=== PATIENT | male | born 1960 | race Hispanic/Latino ===

== ENCOUNTER 2016-04-30 09:30 | Observation (INO) | payer OTHER ==
[2016-04-30] VITALS (9 sets, daily range): BP systolic 137–160; BP diastolic 71–90; PULSE 59–99; RESP 12–20; O2SAT 93–97
[~2016-04-30] VITALS: Ht 172.7 cm; Wt 94.7 kg
[~2016-04-30 09:30] MED LIST: ASPI81TA3 PO; ATOR80TA PO; CLOP75TA28 PO; HYDR12.55 PO; LISI40TA PO; METO-272 PO; NITR0.4T SL; PANT20T PO
--- NOTE | 2016-04-30 09:50 | ED.REPORT ---
HPI-Chest Pain 40 and Over Date of Service Apr 30, 2016 ED Provider: Singh Chen DO A 55 year old male with a history of PA, HTN,CVA, CAD, renal cancer, and hypercholesterolemia, presents to the ED via EMS complaining of chest pain onset last night that has since worsened. Pain is currently rated 8/10. Pain was so bad that he decided not got work and called EMS. He took morphine and nitroglycerine with no relief. At last ED visit , providers did not think that he had PA but he was diagnosed with swollen heart. Nursing Notes Stated Complaint: CHEST PAIN Chief Complaint: Chest Pain Nursing Notes Reviewed: Yes Allergies: Coded Allergies: No Known Allergies (Verified , 02/07/16) Scheduled Atorvastatin (Lipitor) 80 Mg Tablet 80 MG PO DAILY Clopidogrel (Clopidogrel) 75 Mg Tablet 75 MG PO DAILY Hydrochlorothiazide (Hydrochlorothiazide) 12.5 Mg Tablet 25 MG PO DAILY Lisinopril (Lisinopril) 40 Mg Tablet 40 MG PO DAILY Metoprolol Succinate ER (Metoprolol Succinate ER) 100 Mg Tab.er.24h 100 MG PO DAILY Scheduled PRN Nitroglycerin SL (Nitrostat) 0.4 Mg Tab.subl 0.4 MG SL Q5MIN PRN PRN For Chest Pain General Time Seen by MD: 09:48 Chief Complaint Chest pain Hx Obtained From: Patient, EMS Arrived By: Ambulance Sudden in Onset?: Yes Onset Occurred: Yesterday (Last night) Symptom Duration: Since onset Severity: Current: Pain level 8 out of 10 Recent Healthcare: Recent doctor visit Similar Sx Previous: No Past Medical History Past Medical History Notes: PCP: Dr. Hdz Past Medical History 1. Coronary artery disease 2. Hypertension. 3. Hypercholesterolemia. 4. Pt reports brain aneurysm. 5. Renal cancer with partial nephrectomy 6. 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 Physical Exam Initial Vital Signs Vital Signs (First) Date Time Temp Pulse Resp B/P Pulse Ox O2 Delivery O2 Flow Rate FiO2 04/30/16 09:44 36.6 78 15 151/89 95 Nasal Cannula 2 Initial VS: Reviewed General/Constitutional: Awake, Alert patient has chest wall tenderness. patient is hypertensive. Abdomen: Atraumatic, No guarding, No rebound Neck: Atraumatic, Full range of motion Back: Atraumatic, Full range of motion Lower Extremity / Pelvis / MS: Atraumatic, Full range of motion Skin: Atraumatic, Warm, Dry Neurologic: Oriented X3, Speech NL Head / Eyes: Atraumatic, Normocephalic, PERRL, EOMI ENT: Atraumatic, Mucous membranes moist Upper Extremity / MS: Atraumatic, Full range of motion Wrist / Hand: Atraumatic, Full range of motion Interpretation & Diagnostics Lab Results Interpretation Result Diagram: 04/30/16 0938 04/30/16 0938 Test 04/30/16 09:38 04/30/16 10:33 04/30/16 12:15 White Blood Count 6.0th/mm3 (3.8-10.1) Red Blood Count 5.64mil/mm3 (4.40-5.80) Hemoglobin 17.5g/dL (13.8-17.2) Hematocrit 49.4% (41.0-50.0) Mean Corpuscular Volume 87.6fL (81-100) Mean Corpuscular Hemoglobin 31.0pg (27.0-35.0) Mean Corpuscular Hemoglobin Concent 35.4% (32.0-37.0) Red Cell Distribution Width 13.6% (12.3-15.4) Platelet Count 228bil/L (150-400) Neutrophils (%) (Auto) 66.7% (40-74) Lymphocytes (%) (Auto) 26.7% (14-46) Monocytes (%) (Auto) 5.3% (4-12) Eosinophils (%) (Auto) 0.8% (0-5) Basophils (%) (Auto) 0.3% (0-3) Sodium Level 142mEq/L (134-144) Potassium Level 4.2mEq/L (3.5-5.2) Chloride Level 106mEq/L (97-108) Carbon Dioxide Level 21mmol/L (18-29) Blood Urea Nitrogen 19mg/dL (6-24) Creatinine 0.82mg/dL (0.76-1.27) Estimat Glomerular Filtration Rate 103mL/min (>59) Glucose Level 76mg/dL (60-99) Calcium Level 8.7mg/dL (8.5-10.1) Magnesium Level 2.3mg/dL (1.6-2.6) Total Bilirubin 0.7mg/dL (0.0-1.2) Aspartate Amino Transf (AST/SGOT) 20U/L (0-50) Alanine Aminotransferase (ALT/SGPT) 20U/L (0-44) Alkaline Phosphatase 69U/L (25-150) Pro-B-Type Natriuretic Peptide 107.2pg/mL (0-210) Total Protein 6.3g/dL (6.4-8.4) Albumin 4.3g/dL (3.4-5.0) D-Dimer < 0.5mg/L (<0.50) Troponin T 0.010ug/L (0.0-0.011) ECG Interpretation ECG Interpretation: Rate is 76. Sinus rhythm. Probable left ventricular hypertrophy. Abnormal T, consider ischemia, lateral leads. ST elevation, consider anterior inury. Time: 09:54 Interpreted by: ED physician ECG Interpretation: Rate is 63. Sinus rhythm. Probable left ventricular hypertrophy. Abnormal T, consider ischemia, lateral leads. Anterior ST elevation, probably due to LVH. Time: 12:08 Interpreted by: ED physician X-Ray Chest Interpretation Chest Xray Interpretation: Caution: Report not yet finalized and possibly incomplete! IMPRESSION: 1. No acute cardiopulmonary disease. Dictated by: Yayo Robertson [facility] Interpreted: Stephanie Smith MD on 04/30/2016 at 12:18 Transcribed by: SHIRIN on 04/30/2016 at 15:26 View: Portable, 1 view Interpretation / Wet Read by: Interpret - Radiologist CT Chest Interpretation Chest/Ab CT IMPRESSION: 1. No evidence of aortic dissection or aneurysm. 2. Atherosclerosis including the coronary vasculature. 3. Multiple, small, bilateral lung nodules stable compared to 09/01/2008 likely represent sequela prior granulomatous disease. 4. Small umbilical ventral hernia. Dictated by: Stephanie Smith MD, PhD on 04/30/2016 at 12:33 Approved by: Stephanie Smith MD, PhD on 04/30/2016 at 12:51 Interpretation / Wet Read by: Interpret - Radiologist Re-Eval/Medical Decision Med Decision/Clinical Course Patient has persistent chest pain despite aggressive treatment in the ER, no evidence of acute PA however after discussion with cardiology patient will be heparinized and observed in the hospital. Source of Hx: Old records, EMS Time of Eval: 13:25 Re-Evaluation/Progress Note: Rechecked patient, explained test results, diagnosis, and plan for admission. Patient understands and agrees with the plan. All questions addressed. Consultation : Referral / Consult Name: Laurence Wilson MD Call Returned at: 13:20 Senior Quantity Surveyor: Agrees with eval, Agrees with plan, Accepts admit Note: Discussed patient case with Dr. Wilson who accepts patient admit. Counseled Regarding: Diagnosis, Lab results, Need for admission Discharge & Departure Primary Impression: Chest pain Disposition: ADMITTED TO HOSPITAL Discharge Condition All VS Reviewed: Yes Condition: Improved Referrals: ABRAHAN (PCP) James Attestation Portions of this note were transcribed by Jerrod Cummings. I, Dr. Chen personally performed the history, physical exam and medical decision-making; I reviewed and confirmed the accuracy of the information in the transcribed note. Signed by: James Kwon, 04/30/2016 1420. copies to: Singh Mahajan DO Apr 30, 2016 09:49 Jerrod Cummings Apr 30, 2016 10:00
[2016-04-30 09:54] LABS: BASOPHILS % (AUTO) 0.3 % (0-3); EOSINOPHILS % (AUTO) 0.8 % (0-5); MONOCYTES % (AUTO) 5.3 % (4-12); Mean Corpuscular Volume 87.6 fL (81-100); NEUTROPHILS % (AUTO) 66.7 % (40-74); Platelet Count 228 bil/L (150-400)
[2016-04-30] MEDS ORDERED: Ondansetron 2 mg/mL 2 mL Inj IVPUSH ONE (10:05)
[2016-04-30] MEDS ORDERED: Nitroglycerin 2% 1 Gm Ointment TOPICAL ONE (10:05)
[2016-04-30 11:21] LABS: TROPONIN T 0.01 ug/L (0.0-0.011)
[2016-04-30 11:45] LABS: Magnesium 2.3 mg/dL (1.6-2.6)
--- NOTE | 2016-04-30 12:26 | DRSVH ---
PROCEDURE: X-RAY CHEST ONE VIEW, PORTABLE ([id number]) INDICATIONS: CHEST PAIN. TECHNIQUE: One view of the chest was acquired. COMPARISON: [facility], CR, XR CHEST 1VW (PORTABLE), 02/07/2016, 1:59. FINDINGS: Surgical changes and devices: Lower cervical spine fixation hardware redemonstrated. Lungs and pleura: No pleural effusions or pneumothorax. Lungs are clear. Mediastinum: Mediastinal contours appear normal. Heart size is normal. Bones and chest wall: No suspicious bony lesions. Overlying soft tissues appear unremarkable. IMPRESSION: 1. No acute cardiopulmonary disease. Dictated by: Yayo Robertson RRA Interpreted: Stephanie Smith MD on 04/30/2016 at 12:18 Transcribed by: SHIRIN on 04/30/2016 at 15:26 Approved by: Stephanie Smith MD, PhD on 05/01/2016 at 11:00
--- NOTE | 2016-04-30 12:53 | DRSVH ---
PROCEDURE: CT ANG CHEST/ABD W/WO CONTRAST ([id number]) INDICATIONS: chest pain radiating to back TECHNIQUE: Precontrast 5 mm thick sections acquired from the lung apices to the iliac crests. After the adminis tration of intravenous contrast, 3 mm thick sections again acquired from the lung apices to the iliac crests. 3-dimensional maximum intensity projection (MIP) oblique sagittal and coronal reformats wer e then acquired, and/or 3-dimensional volume rendering reformats. For radiation dose reduction, the following was used: automated exposure control. COMPARISON: [facility], CT, CHEST ANGIO-PE, 09/01/2008, 7:43. FINDINGS: Image quality: Excellent. AORTA: Intramural hematoma: Absent Maximum hematoma thickness: Not applicable. Focal contrast enhancement: Intramural blood pool (< 2 mm neck or imperceptible communication with aortic lumen): Absent. Ulcer-like projection (broad communication with aortic lumen > 3 mm): Absent. Dissection: Absent. Martin classification: Not applicable. Maximum aortic diameter: 3.5 cm. [If Martin A dissection, > 5.0 cm has a poorer prognosis. If [place] B dissection, > 4.0 cm has a poorer prognosis.] Periaortic hematoma: Absent. CHEST: Lungs and pleura: No acute airspace opacities. Small nodules noted in the lungs bilaterally which ar e not significantly changed compared to prior examination obtained 09/01/2008. No pleural effusions or pneumothorax. Central and peripheral airways are patent and normal in caliber. Mediastinum: Heart size is normal. Atherosclerotic ossifications noted in the aorta and the coronar y vasculature. Endovascular stents noted in the coronary vasculature; please correlate with clinical history. No pericardial effusion. No mediastinal or hilar adenopathy by size criteria. Central pulm onary arteries are normal in size. Esophagus is normal in caliber. No hiatal hernias. Bones and chest wall: No axillary adenopathy by size criteria. Thyroid gland is within normal limit s. No suspicious bony lesions. No vertebral body compression fractures. ABDOMEN: Vasculature: Celiac trunk and mesenteric arteries are patent. Renal arteries are also patent. Solid organs: Liver and spleen are normal in size. Gallbladder is within normal limits. Biliary sy stem is non dilated. Pancreas enhances normally. No adrenal nodules. Both kidneys are normal in si ze and enhancement, without hydronephrosis. Right renal cyst is noted. Peripheral calcifications are noted in the left kidney may represent sequela of prior infection or infarction. Peritoneum and bowel: No free fluid or air. Bowel loops are normal in caliber and wall thickness. Nodes and vessels: No retroperitoneal or mesenteric adenopathy by size criteria. Inferior vena cava is normal in morphology. Bones: No suspicious bony lesions. No vertebral body compression fractures. Fixation hardware noted in the lower cervical spine. Miscellaneous: Small fat-containing umbilical ventral hernia is noted.. IMPRESSION: 1. No evidence of aortic dissection or aneurysm. 2. Atherosclerosis including the coronary vasculature. 3. Multiple, small, bilateral lung nodules stable compared to 09/01/2008 likely represent sequela prior granulomatous disease. 4. Small umbilical ventral hernia. Dictated by: Stephanie Smith MD, PhD on 04/30/2016 at 12:33 Approved by: Stephanie Smith MD, PhD on 04/30/2016 at 12:51
[2016-04-30] MEDS ORDERED: Heparin 5,000 Unit/mL Inj IVPUSH ONE (13:25)
[2016-04-30] MEDS ORDERED: Heparin 25K Unit/500mL 0.45 NS 25,000 UNIT in IV Premix 1 EACH IV ONE (13:25)
[2016-04-30] MEDS ORDERED: METO-274 PO (14:09)
[2016-04-30] MEDS ORDERED: Alum-Mag Hydrox-Simeth 30 mL Suspension PO PRN ×3 (14:15→20:30)
[2016-04-30] MEDS ORDERED: Ondansetron 2 mg/mL 2 mL Inj IVPUSH PRN ×2 (14:15→17:00)
[2016-04-30] MEDS ORDERED: AMLO5TAB2 PO (14:48)
[2016-04-30] MEDS ORDERED: ASPI-973 PO (14:48)
[2016-04-30] MEDS ORDERED: HYDR25TA4 PO (14:48)
--- NOTE | 2016-04-30 15:15 | NUR ---
Admit Pt admitted to floor at 1515. Stable, heparin drip at 20ml/hr or 1000units/hr verified with Rafaela smiley RN. Oriented to room. Chest pain remains at 7/10 despite treatments in ER, per REPA[employer]ER [employer]ICKS and pt. Stable on tele per senior radiation protection technician. Denies SOB. VSS MD notified of continued chest pain at 1540, no new orders and MD to see pt. To continue to monitor.
[2016-04-30] MEDS ORDERED: Polyethylene Glycol (PEG) 17 Gm Powder PO PRN (17:00)
--- NOTE | 2016-04-30 17:12 | NUR ---
Neuro 1630 notified that during assessment questions, pt states that prior today he was having word slurring and word searching issues. FAST screen negative and pt conversant and joking in room. No new orders, to see pt. Addendum: 04/30/16 at 1844 by CHAKA SHAH RN Pt seen by MD at bedside. Discussed intermittent chest pain. Discussed neurologic symptoms with pt at bedside. MD to order CT and carotid US. To continue to monitor. Per , to order CIWA protocol and monitor.
[2016-04-30] MEDS ORDERED: Heparin 25K Unit/500mL 0.45 NS 25,000 UNIT in IV Premix 1 EACH IV SCH (17:30)
[2016-04-30] MEDS ORDERED: Heparin 5,000 Unit/mL Inj IVPUSH PRN (18:00)
--- NOTE | 2016-04-30 19:41 | DRSVH ---
PROCEDURE: US BILATERAL DUPLEX DOPPLER IMAGING OF THE CAROTIDS ([id number]) INDICATIONS: Neurological symptoms. dizziness TECHNIQUE: Color and pulse Doppler interrogation was performed of both carotid systems, with image documentation and velocity measurements. COMPARISON: None. FINDINGS: All stenosis calculations are based on NASCET criteria. Right side: Brachial blood pressure: 159/90 mm Hg. Common Carotid Artery(Distal) PSV: 101.20 cm/s Internal Carotid Artery PSV- Proximal: 97.50 cm/s Mid-lon.20 cm/s Distal: 64.80 cm/s EDV - Proximal: 18.50 cm/s Mid-lon.60 cm/s Distal: 29.30 cm/s External Carotid Artery(Proximal) PSV: 244.30 cm/s ICA/CCA PSV ratio: 0.96 Renteria scale imaging description: Scattered calcified plaque at the bifurcation Percent internal carotid artery stenosis: Less than 50%. Vertebral artery: Flow direction is antegrade. Left side: Brachial blood pressure: 155/81 mm Hg. Common Carotid Artery(Distal) PSV: 84.50 cm/s Internal Carotid Artery PSV - Proximal: 76.10 cm/s Mid-lon.30 cm/s Distal: 42.80 cm/s EDV - Proximal: 22.60 cm/s Mid-lon.10 cm/s Distal: 19.70 cm/s External Carotid Artery(Proximal) PSV: 126.10 cm/s ICA/CCA PSV ratio: 1.31 Renteria scale imaging description: Mild plaque at the bifurcation Percent internal carotid artery stenosis: Less than 50%. Vertebral artery: Flow direction is antegrade. IMPRESSION: Bilateral less than 50% ICA stenoses Dictated by: Aj Montoya M.D. on 04/30/2016 at 19:40 Approved by: Aj Montoya M.D. on 04/30/2016 at 19:40
--- NOTE | 2016-04-30 20:05 | DRSVH ---
PROCEDURE: CT BRAIN WITHOUT CONTRAST ([id number]) INDICATIONS: dizziness TECHNIQUE: Noncontrast 4.5 mm thick angled axial sections acquired from the foramen magnum to the vertex, with c oronal reformats. COMPARISON: [facility], CT, CT BRAIN WO CON, 02/05/2015, 1:32. FINDINGS: Image quality: Excellent. CSF spaces: Basal cisterns are patent. No extra-axial fluid collections. The ventricles are symmet mar in size and shape. Brain: No intracranial bleeds or masses. There is cerebral volume loss for age, with resultant vent ricular and sulcal prominence. There are periventricular and deep white matter chronic small vessel ischemic changes. There is intracranial internal carotid artery atherosclerosis. Skull and face: Calvarium and visualized facial bones appear intact, without suspicious lesions. Sinuses: Left maxillary mucous retention cyst or polyp IMPRESSION: No acute intracranial process Dictated by: Aj Montoya M.D. on 04/30/2016 at 20:02 Approved by: Aj Montoya M.D. on 04/30/2016 at 20:04
[2016-04-30] MEDS ORDERED: Magnesium Sulf 2 Gm/50 mL D5W IV PRN ×2 (20:30→20:40)
[2016-04-30] MEDS ORDERED: LORazepam 1 mg Tablet PO PRN ×3 (20:30→20:40)
[2016-04-30] MEDS ORDERED: BANANA IV ONE ×10 (20:30→20:40)
[2016-04-30] MEDS ORDERED: LORazepam 2 mg Tablet PO PRN (20:30)
[2016-04-30] MEDS ORDERED: Haloperidol 5 mg/mL Inj IV PRN ×2 (20:30)
[2016-04-30] MEDS ORDERED: Flumazenil 0.1 mg/mL 5 mL Inj IV PRN (20:30)
--- NOTE | 2016-04-30 20:38 | NUR ---
Pain Pt c/o chest pain 10/03. Denies shortness of breath and resp distress. Morphine IV 4mg given. care ongoing.
[2016-05-01] VITALS (10 sets, daily range): BP systolic 134–197; BP diastolic 72–112; PULSE 53–68; RESP 16–18; O2SAT 96–99
[2016-05-01] MEDS: Sodium Chloride LOK Flush 10 mL Syringe IVFLUSH SCH ×3 (00:30→16:09)
--- NOTE | 2016-05-01 05:45 | PCM.HPMED ---
Subjective Date of Service Apr 30, 2016 Primary Provider: Admitting Physician: Hannah Bautista DO Primary Care Physician: Iggy Hdz MD Attending Physician: Hannah Bautista DO Admit Status: Remote Telemetry Chief Complaint: chest pain History of Present Illness: 55 yo pleasant male with PMH of CAD s/p [place] and cardiac stents, HTN, Hyperlipidemia, CVA, Renal cancer s/p nephrectomy, Brain aneurysm is presenting with chest pain ongoing since the night before. Pain is stabbing in quality, he has experienced many previous episodes and ED visits. He says pain radiate to his back. he has numbness over his arms, legs, and face. DEnies pain in neck, teeth and jaw. Pain intensity does not change with activity. His last stress test was just 3 months ago and says his last catheterization was three years ago. He says his last visit, ED told him his "heart was swollen". He says he is non smoker, denies drug abuse but says he does have alcohol issues. He drinks 4-5 beers a day. In the ED CTA of chest showed no evidence of PE or aortic dissection. In spite of receiving morphine and nitro during the transport and in the ED, his pain has not improved. He is conversing with family and staff w/o exertion, however. His troponons are negative and EKG did not reveal acute changes. VSS. Cardiology was contacted and they recommended observation overnight. Records indicate Left ventricular systolic function is mildly reduced with the ejection fraction estimated to be 45-50% with mild global hypokinesis that is more prominent compared to the previous study, as well as severe hypokinesis in the mid posterior wall with associated echogenicity, suggestive of old scar, mild biatrial enlargement in 02/05/16 echo, stress test from the same date shows predominantly-fixed, small-size, mildly-decreased perfusion of the basal inferior wall, extending into the basal inferoseptum. The left ventricular end diastolic volume is 181 mL, suggestive of dilated left ventricle. Left ventricular ejection fraction reported to be 48% with global hypokinesis. As the patient has a history of excessive alcohol intake, there may be an element of alcohol-induced cardiomyopathy as well. Patient is admitted to the [facility] for 23 hr observation for ACS ruleout. Review of Systems: He says he has dizziness that is ongoing sicne this AM, symmetric weakness in arms and legs, nausea, blurred vision, short term memory loss and recent weight loss. He denies pain after eating, recentinfections. All other ROS negative except as stated here. Allergies Coded Allergies: No Known Allergies (Verified , 04/30/16) Home Medications Current Medications Nitroglycerin 0.4 mg Q5MIN PRN SL Amlodipine Besylate 5 mg DAILY PO Clopidogrel Bisulfate 75 mg DAILY PO Hydrochlorothiazide 25 mg DAILY PO; Start 05/01/16 at 08:30 Lisinopril 40 mg DAILY PO; Start 05/01/16 at 08:30 Atorvastatin Calcium 80 mg HS PO; Start 05/01/16 at 21:00 Metoprolol Succinate 100 mg 100 mg DAILY PO; Start 05/01/16 at 08:30 PMH CAD s/p [place] and cardiac stents, HTN, Hyperlipidemia, CVA, Renal cancer s/p nephrectomy, Brain aneurysm Surgical History C-spine multilevel laminectomy partial nephrectomy appendectomy tonsillectomy multiple cardiac Stents Social History Hx Alcohol Use: Yes (4-5 beers a day) Alcoholic Drinks Per Day: 6 pack every 2 days Hx Substance Use: No Hx Tobacco Use: No Smoking Status: Never Smoker Living Arrangement: with Family Additional Information Works at a [employer], has good family support, non-smoker, drinks several beers a day , trying to quit. Use to drink a lot more. Denies drugs. Lives in [facility] Exam Vital Signs Vital Sign - Last Date Time Temp Pulse Resp B/P Pulse Ox O2 Delivery O2 Flow Rate FiO2 05/01/16 04:12 56 05/01/16 02:07 36.3 16 158/88 99 Room Air 04/30/16 14:41 2 Intake and Output 04/30/16 04/30/16 05/01/16 Cumulative From/Thru 15:00 23:00 07:00 04/30/16 09:44 - 05/01/16 05:36 Intake Total 1200 ml 514 ml 1714 ml Output Total 500 ml 500 ml Balance 1200 ml 14 ml 1214 ml Intake Oral 1200 ml 200 ml 1400 ml IV Total 314 ml 314 ml Output Urine Total 500 ml 500 ml # Voids 2 1 3 Exam Eyes: [place] conjunctivae. No ptosis, PERRL Neck: No masses, trachea midline, no thyromegaly Lungs: CTA with normal respiratory effort CV: RRR, no murmurs/rubs/gallops, normal PMI GI: Soft, non-tender with no hepatosplenomegaly MSK: Normal gait and station, no digital cyanosis Skin: Warm and dry. Neuro: No focal deficits, CN II-XII grossly normal Psych: A&O X3, with appropriate affect Lab and Diagnostics Result Diagram: 04/30/1693704/30/16937 X-Rays, CTs and MRIs [facility] Diagnostic [place] [address] Patient Name: TIGRE SWEET MR#: [id number] Location: [facility] Ordering Phys: DulceTiaraSingh Date of Service: 04/30/16 1158 PROCEDURE: CT ANG CHEST/ABD W/WO CONTRAST ([id number]) INDICATIONS: chest pain radiating to back TECHNIQUE: Precontrast 5 mm thick sections acquired from the lung apices to the iliac crests. After the administration of intravenous contrast, 3 mm thick sections again acquired from the lung apices to the iliac crests. 3-dimensional maximum intensity projection (MIP) oblique sagittal and coronal reformats were then acquired, and/or 3-dimensional volume rendering reformats. For radiation dose reduction, the following was used: automated exposure control. COMPARISON: [facility], CT, CHEST ANGIO-PE, 09/01/2008, 7:43. FINDINGS: Image quality: Excellent. AORTA: Intramural hematoma: Absent Maximum hematoma thickness: Not applicable. Focal contrast enhancement: Intramural blood pool (< 2 mm neck or imperceptible communication with aortic lumen): Absent. Ulcer-like projection (broad communication with aortic lumen > 3 mm): Absent. Dissection: Absent. Hudson classification: Not applicable. Maximum aortic diameter: 3.5 cm. [If Hudson A dissection, > 5.0 cm has a poorer prognosis. If Hudson B dissection, > 4.0 cm has a poorer prognosis.] Periaortic hematoma: Absent. CHEST: Lungs and pleura: No acute airspace opacities. Small nodules noted in the lungs bilaterally which are not significantly changed compared to prior examination obtained 09/01/2008. No pleural effusions or pneumothorax. Central and peripheral airways are patent and normal in caliber. Mediastinum: Heart size is normal. Atherosclerotic ossifications noted in the aorta and the coronary vasculature. Endovascular stents noted in the coronary vasculature; please correlate with clinical history. No pericardial effusion. No mediastinal or hilar adenopathy by size criteria. Central pulmonary arteries are normal in size. Esophagus is normal in caliber. No hiatal hernias. Bones and chest wall: No axillary adenopathy by size criteria. Thyroid gland is within normal limits. No suspicious bony lesions. No vertebral body compression fractures. ABDOMEN: Vasculature: Celiac trunk and mesenteric arteries are patent. Renal arteries are also patent. Solid organs: Liver and spleen are normal in size. Gallbladder is within normal limits. Biliary system is non dilated. Pancreas enhances normally. No adrenal nodules. Both kidneys are normal in size and enhancement, without hydronephrosis. Right renal cyst is noted. Peripheral calcifications are noted in the left kidney may represent sequela of prior infection or infarction. Peritoneum and bowel: No free fluid or air. Bowel loops are normal in caliber and wall thickness. Nodes and vessels: No retroperitoneal or mesenteric adenopathy by size criteria. Inferior vena cava is normal in morphology. Bones: No suspicious bony lesions. No vertebral body compression fractures. Fixation hardware noted in the lower cervical spine. Miscellaneous: Small fat-containing umbilical ventral hernia is noted.. IMPRESSION: 1. No evidence of aortic dissection or aneurysm. 2. Atherosclerosis including the coronary vasculature. 3. Multiple, small, bilateral lung nodules stable compared to 09/01/2008 likely represent sequela prior granulomatous disease. 4. Small umbilical ventral hernia. Dictated by: Stephanie Smith MD, PhD on 04/30/2016 at 12:33 Approved by: Stephanie Smith MD, PhD on 04/30/2016 at 12:51 CXR 04/30/16 NAD Cardiac Echo Impressions [facility] Diagnostic [place] [address] Patient Name: TIGRE SWEET MR#: [id number] Location: [facility] Ordering Phys: Ludmila Travis DO Date of Service: 02/09/[address] [place] [id number] Echocardiogram Report Name: TIGRE SWEET MStudy Dereck e: 02/09/2016 Height: 68 in Hospital Exam Location: [facility] Weight: 217 lb Gender: Male BSA: 2.1 m2 : 1960 Age: 55 yrs BP: 135/91 mmHg Reason For Study: CHEST PAIN Ordering Physician: Performed By: Zeeshan Arauz Interpretation Summary Left ventricular systolic function is mildly reduced with the ejection fraction estimated to be 45-50% with mild global hypokinesis that is more prominent compared to the previous study, as well as severe hypokinesis in the mid posterior wall with associated echogenicity, suggestive of old scar, that is unchanged compared to the previous study. There is mild concentric left ventricular hypertrophy with diastolic parameters suggesting a pseudonormalization pattern, consistent with elevated filling pressures but this is unchanged compared to the previous study. The right ventricle is normal in size and function and appears unchanged compared to the previous study. Pulmonary artery pressures cannot be estimated because of the lack of a measurable TR jet velocity but the IVC suggests a low right atrial pressure of 3 mm Hg. There is mild biatrial enlargement. The left atrium has mildly decreased in size since the prior echo exam while the right atrium has mildly increased in size. There is no significant valvular heart disease. The ascending aorta is at the upper limits of normal in size but is unchanged compared to the previous study. Procedure: A two-dimensional transthoracic echocardiogram with color flow and Doppler was performed. The study quality was technically adequate. Comparison is made with the echocardiogram of 02/05/15. The patient was in sinus bradycardia with heart rates between 51-59 bpm during the exam. This is considerably slower compared to the previous study. Left Ventricle: The left ventricle is normal in size. There is mild concentric left ventricular hypertrophy. There is no thrombus. Left ventricular systolic function is mildly reduced. The ejection fraction is estimated to be 45-50%. There is mild global hypokinesis of the left ventricle. This is more prominent compared to the previous study. There is severe hypokinesis in the mid posterior wall with associated echogenicity, suggestive of old scar. This is unchanged compared to the previous study. Assessment of diastolic parameters suggests a pseudonormalization pattern, consistent with elevated filling pressures. This is unchanged compared to the previous study. Right Ventricle: The right ventricle is normal in size and function. This is unchanged compared to the previous study. Atria: There is mild biatrial enlargement. The left atrium has mildly decreased in size since the prior echo exam. The right atrium has mildly increased in size since the prior echo exam. The interatrial septum is intact with no evidence for an atrial septal defect. Mitral Valve: There is mild to moderate mitral annular calcification. There is trace mitral regurgitation. This is unchanged compared to the previous study. Aortic Valve: The aortic valve is trileaflet. The aortic valve opens well. There is no aortic valve stenosis. There is trace aortic regurgitation. Tricuspid Valve: The tricuspid valve is normal in structure and function. No tricuspid regurgitation. Pulmonary artery pressures cannot be estimated because of the lack of a measurable TR jet velocity. Pulmonic Valve: The pulmonic valve is normal in structure and function. There is no pulmonic valvular regurgitation. There is no significant valvular heart disease. Great Vessels: The aortic root is normal size. The ascending aorta is at the upper limits of normal in size. This is unchanged compared to the previous study. The pulmonary artery is normal size. The IVC is of normal diameter and collapses greater than 50% with a sniff. This suggests a low right atrial pressure of 3 mm Hg. Pericardium/ Pleura There is no pericardial effusion. There is no pleural effusion. MMode/2D Measurements & Calculations LVIDd: 5.4 cmLA dimension: 4.2 cm RA long axis: 5.0 cm Ao root diam: 3.2 cm LVIDs: 4.3 cm Aortic Jxn: 2.6 cm FS: 20.1 % LA A2 area: 21.4 cm RA area: 20.9 cm asc Aorta Diam EPSS: 1.3 cm LA A4 area: 27.4 cm RA vol: 74.8 ml IVSd: 1.2 cm LA length (vol) RA : 35.4 ml/m2 Ao Arch Diam LVPWd: 1.1 cm (Proximal trans.) LA vol: 81.9 ml LA vol index IVC diam: 1.3 cm EDV(MOD-sp2) LV michael. diameter/BSA LV sys. diameter/BSA : 108.3 ml (cm/m^2): 2.5 (cm/m^2): 2.0 Doppler Measurements & Calculations Ao V2 max MV E max rupesh MV E/A: 1.3 PA V2 max: 68.7 cm/sec : 149.6 cm/sec : 101.8 cm/sec Med Peak E' Rupesh PA mean P.1 mmHg Ao max PG MV A max rupesh PA Accel Time: 0.11 sec : 9.0 mmHg : 77.8 cm/sec E/E' med: 19.7 Ao mean PG Lat Peak E' Rupesh : 5.6 mmHg E/E' lat: 16.2 Pulm A Revs Dur MV A dur: 0.13 sec MV dec time Ao V2 mean PA V2 mean Pulm A Revs Dur - MV A : 0.13 sec : 114.4 cm/sec : 49.7 cm/sec Dur: -0.01 msec Ao V2 VTI: 35.5 cmPA pr(Accel) : 31.6 mmHg Reading Physician:11:44 AM [facility] Diagnostic Imaging Department [place], [place] [id number] Patient Name: TIGRE SWEET MR#: [id number] Location: [facility] Ordering Phys: JO-ANN OCHOA DO Date of Service: 02/08/16 1357 PROCEDURE: ONE DAY PHARMACOLOGICAL STRESS TEST. Rest and pharmacological stress myocardial perfusion SPECT with gated imaging and ejection fraction RADIOPHARMACEUTICAL: 9.2 mCi Tc-99m tetrofosmin IV at rest and 29.1 mCi Tc-99m tetrofosmin IV at peak effect of pharmacological stress. A [id number]-ymchtfyc was performed. INDICATIONS: Chest pain, history of coronary artery disease with cardiac catheterization in 2013. TECHNIQUE: Radiopharmaceutical was injected at peak stress test, and also at rest. SPECT images were obtained. SPECT myocardial perfusion images were displayed in short axis, horizontal long axis, and vertical long axis views. Gated images were reviewed using [employer] software. COMPARISON: None. CARDIAC STRESS: Initially the patient attempted exercise stress test. He walked on the Chad protocol for about 4 minutes and 32 seconds, however, felt lightheaded and achieved only 66% of target heart rate. Hence, exercise stress test was converted to pharmacologic perfusion stress test. A pharmacologic stress test was performed under the supervision of attending staff using an infusion of Lexiscan as per protocol. Hemodynamic Data: Overall the patient remained hemodynamically stable. Initial blood pressure 150/92. Maximum blood pressure 194/104. Symptoms: The patient had lightheadedness. It happened during exercise, however, with Lexiscan, no symptoms were reported. Aminophylline: No aminophylline was given. EKG: Baseline rhythm was sinus with evidence of LVH and inferolateral T-wave inversion. During stress, there were no obvious new ischemic changes. There was no significant arrhythmia noted. FINDINGS: Raw Data: There appears to be adequate myocardial uptake. The patient's weight is 214 pounds. Gated Study: Resting and stress LV ejection fraction reported to be 48%. There appears to be mild global hypokinesis. Left Ventricle Function: Left ventricle end diastolic volume 181 mL, suggestive of dilated left ventricle. Myocardial Perfusion Scan: Stress supine, resting supine and stress prone images were compared to each other. It appears that the patient has predominantly-fixed, small-size, mildly-decreased perfusion of the basal inferior wall, extending into the basal inferoseptum. I do not see any obvious reversible ischemia. IMPRESSION: 1. No obvious reversible ischemia. 2. The patient has predominantly-fixed, small-size, mildly-decreased perfusion of the basal inferior wall, extending into the basal inferoseptum. This could be due to persistent tissue attenuation artifact, however, I cannot rule out the possibility of small basal inferior wall and inferoseptal infarction. The left ventricular end diastolic volume is 181 mL, suggestive of dilated left ventricle. Left ventricular ejection fraction reported to be 48% with global hypokinesis. As the patient has a history of excessive alcohol intake, there may be an element of alcohol-induced cardiomyopathy as well. Dictated by: Phill Chance M.D. on 02/08/2016 at 18:00 Transcribed by: LV on 02/09/2016 at 1:18 Approved by: Phill Chance M.D. on 02/10/2016 at 15:00 Assessment & Plan 1. Chest Pain: Unstable Angina. Patient will be given Morphine and PRN oxygen as needed. Will continue home oxygen, lisinopril and metoprolol. He has had a recent stress, thus no new stress will be ordered. Troponins will be trended, AM EKG is ordered. Telemonitoring. Nitro PRN. Plan to consult cardiology if symptoms worsen overnight. Continue heparin drip. AM Lipid panel and A1C are ordered 2. Extreme dizziness: DDX include stroke, autonomic dysfunction due to alcoholism and cervical radiculopathy. CT Head WO and carotid U/S are ordered 3. Alcoholism: CIWA protocol 4. Chronic hypertension: Continue home meds 5. CAD: Continue home meds Patient disposition: Will be observed overnight with plan to discharge home if ACS is ruled out. Pain Evaluation: Adequate Pain Control GI Prophylaxis: Not indicated VTE Prophylaxis: Other (heparin drip) Resuscitation Status: CPR: Attempt Resuscitation Hannah Bautista DO May 01, 2016 05:45
--- NOTE | 2016-05-01 05:51 | NUR ---
Blood Pressure Patients BP was 189/107, no PRN BP medication available. MD murillo. Addendum: 05/01/16 at 0601 by CATARINO CHICAS RN called back, ordered to give Metoprolol dose scheduled for 829 now
[2016-05-01] MEDS: MeTOProlol XL 50 mg ER24 Tablet PO SCH (06:06)
[2016-05-01] MEDS: Lisinopril 40 Tablet PO SCH (07:32)
[2016-05-01] MEDS: Multivit-Miner-Folic Acid-Iron Tablet PO SCH (07:38)
[2016-05-01 08:22] LABS: BASOPHILS % (AUTO) 0.4 % (0-3); EOSINOPHILS % (AUTO) 1.8 % (0-5); Mean Corpuscular Hemoglobin 31.3 pg (27.0-35.0); Mean Corpuscular Volume 88.8 fL (81-100); NEUTROPHILS % (AUTO) 67.7 % (40-74); Platelet Count 201 bil/L (150-400)
[2016-05-01] MEDS ORDERED: Multivit-Miner-Folic Acid-Iron Tablet PO SCH (08:30)
--- NOTE | 2016-05-01 09:20 | NUR ---
Cardiac PT with persistent hypertension 180s-200s with DBP >100. CP 5-6/10 unrelieved by morphine 4mg. Dr. Bautista notified and in to see pt, cardiology consult placed. Pt c/o PERDOMO post morphine and no relief of CP. EKG done. NPO for possible heart cath, depending on what cardiology recommends. Continue to monitor. Addendum: 05/01/16 at 1147 by MICHELLE MACHUCA RN Correction: SBP did not reach 200. Cardiology has not yet seen pt. Pt continues to have chest pain 7-8 unrelieved with morphine. Pt states nitro does not work to relieve pain. Dr. Bautista notified x2, no new orders placed. Pt remains NPO.
--- NOTE | 2016-05-01 13:58 | NUR ---
Cardiac Dr. Chaudhary in to see pt. Pt to have angiogram tomorrow at 0830, so NPO after midnight tonight.
--- NOTE | 2016-05-01 14:49 | CONS ---
[address] [address] CONSULTATION REPORT PATIENT: TIGRE SWEET : 1960 MR#: [id number] ADMIT: 04/30/2016 JOB ID: [id number] DATE OF SERVICE: 05/01/2016 REQUESTED BY: Hannah Bautista DO. REASON FOR EVALUATION: Chest discomfort. HISTORY: The patient is a 55 years old, man with history of hypertension and hypercholesterolemia. The patient has known coronary artery disease dating back to 2007, when he presented with acute coronary syndrome. Coronary angiogram at that time demonstrated moderate disease of the left anterior descending, diagonal branch and dominant left circumflex artery with preserved left ventricular ejection fraction. He was managed medically. The patient came back with progressive angina in February 2013, when he experienced exertional chest discomfort when he walked about two blocks and relieved by rest. He had stent placement to the left posterior descending branch and obtuse marginal branch on March 05, 2013, and stent to the left anterior descending artery on March 07, 2013, by Dr. Patel. He came back with chest pain in January 2015. Lexiscan MIBI showed nontransmural infarction with no ischemia with ejection fraction of 45% to 50% range. He came back two more times in February 2015, and January 2016, for chest pain. He had another pharmacologic MIBI on February 08, 2016, which showed prior small basal inferior infarction with no ischemia and ejection fraction of 48%. The patient was hospitalized yesterday with a complaint of chest discomfort. He describes his chest pain as jabbing or stabbing. It persisted all day long. He rated it about 8/10. It could last for 10-15 minutes before it eased off. It got worse with body movement. Nothing seemed to relieve it. He can climb up three flights of stairs at work. He would get out of breath and feel dizzy. It did not make any difference to his chest pain. He denies orthopnea, PND, palpitations, or syncope. His chest pain did not radiate. There were no associated symptoms. PAST MEDICAL HISTORY: 1. Cardiac history as outlined above. 2. Hypertension. 3. Hypercholesterolemia. PAST SURGICAL HISTORY: 1. Brain aneurysm treated in [place] 10 years ago. 2. Partial left nephrectomy for renal cancer in [place] nine years ago. 3. C-spine surgery. 4. Appendectomy. MEDICATIONS PRIOR TO HOSPITALIZATION: 1. Clopidogrel 75 mg daily. 2. Metoprolol succinate 100 mg daily. 3. Lisinopril 40 mg daily. 4. Hydrochlorothiazide 25 mg daily. 5. Atorvastatin 80 mg. 6. Nitroglycerin 0.4 mg sublingual p.r.n. ALLERGIES: No known allergies. SOCIAL HISTORY: He lives in [place]. His primary care doctor is Dr. Iggy Hdz. He has never smoked. He drinks alcohol heavily. Lately, he has tried to cut down and still drinks a 6-pack per day. He denies any drugs. FAMILY HISTORY: His brother underwent coronary artery bypass surgery x5. REVIEW OF SYSTEMS: All 10 systems are reviewed and pertinent for he snores at night. He denies dry mouth or sleeping in the morning. PHYSICAL EXAMINATION: Reveals a middle-aged, obese male, appearing in no acute distress. He has a poor hygiene. Temperature is 36.5. Blood pressure is 162/89. Pulse is 54. Body weight is 93.9 kg. Head and face have normal configuration. Anicteric sclerae. Moist mucosa. Neck supple. No jugular venous distention or carotid bruits. Chest: Normal expansion. Lungs are clear to auscultation. Heart: The first and second heart sounds normal. No gallop or murmur. Abdomen: Soft, nontender. Extremities: No clubbing, cyanosis, or edema. Peripheral pulses are equal bilaterally. Neurologic: Grossly intact. BLOOD TESTS: Show hemoglobin 15.4, WBC 5.5, platelets 201. Sodium 138, potassium 4.5, chloride 105, bicarb 22, BUN 17, creatinine 0.76, glucose 95. Troponin T less than 0.01. Cholesterol 145, triglycerides 61, HDL 68 and LDL 64. EKG shows sinus rhythm. Left ventricular hypertrophy with strain pattern. IMPRESSION: 1. Noncardiac chest discomfort. 2. Status post coronary stent to the left anterior descending, obtuse marginal branch and left posterior descending branch in February 2013. 3. Possible alcoholic cardiomyopathy. 4. Hypertension. 5. Hypercholesterolemia, under control. 6. Possible obstructive sleep apnea. 7. Anxiety. PLAN: I explained to the patient that his chest pain is noncardiac, as it is not getting worse with activity. He also has two stress tests, which demonstrated no ischemia in January 2016, and January 2015. However, the patient remains convinced that his chest pain is coming from his heart. I will arrange for him to undergo coronary angiogram and FFR. The risks and benefits of the procedure have been explained to the patient. He understands and agrees to proceed with the procedure. I also strongly advised the patient to stop drinking. ALISTAIR
--- NOTE | 2016-05-01 15:52 | NUR ---
Social Work Note - Screening: D/A: The Pt is a 55 y/o male that was admitted under observation status for chest pain r/o ACS. The Pt's PCP is MD Iggy Hdz and his insurance is [employer]. EMR reviewed, SW met with Pt to explain role and discuss discharge planning. 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 He does not have a DPOA, paperwork given. The Pt explored the possibility of him applying for disability in the future, SW encouraged the Pt to contact the [facility] office in [place] for additional assistance. Pt discussed in rounds, Cardiology consult placed. SW telephone number and Cardiology consult plan written on white board. P: The Pt is not medically stable for discharge at this time, Cardiology consult placed. Pt likely to discharge home via family POV when medically stable. Zuri Rosario MSW Appliance Service Technician YUE More
[2016-05-01] MEDS: Heparin 25K Unit/500mL 0.45 NS 25,000 UNIT in IV Premix 1 EACH IV SCH (16:24)
--- NOTE | 2016-05-01 16:27 | PCM.PNMED ---
Subjective Date of Service May 01, 2016 Subjective Patient states he is having 5-7/10 and nothing helps his pain. He is well otherwise this AM. We discussed in detail the possibility of a cath procedure if he continues to have pain and he says his pain is real. EKG this AM showed no changes . He was hypertensive this AM, metoprolol was held due to HR< 60. No other concerns today. Exam Vital Signs Vital Sign - Last Date Time Temp Pulse Resp B/P Pulse Ox O2 Delivery O2 Flow Rate FiO2 05/01/16 15:00 37.0 64 137/85 97 Room Air 05/01/16 05:45 18 04/30/16 14:41 2 Intake and Output 04/30/16 04/30/16 05/01/16 Cumulative From/Thru 15:00 23:00 07:00 04/30/16 09:44 - 05/01/16 05:36 Intake Total 1200 ml 514 ml 1714 ml Output Total 500 ml 500 ml Balance 1200 ml 14 ml 1214 ml Intake Oral 1200 ml 200 ml 1400 ml IV Total 314 ml 314 ml Output Urine Total 500 ml 500 ml # Voids 2 1 3 IVs and Medications Medications Reviewed: Medications were reviewed in detail Lab and Diagnostics Result Diagram: 05/01/16 0721 05/01/16720 X-Rays, CTs and MRIs [facility] [place] [address] Patient Name: TIGRE SWEET MR#: [id number] [place] [facility] [place] Phys: Hannah Bautista DO Date of Service: 04/30/161747 PROCEDURE: US BILATERAL DUPLEX DOPPLER IMAGING OF THE CAROTIDS ([id number]) INDICATIONS: Neurological symptoms. dizziness TECHNIQUE: Color and pulse Doppler interrogation was performed of both carotid systems, with image documentation and velocity measurements. COMPARISON: None. FINDINGS: All stenosis calculations are based on NASCET criteria. Right side: Brachial blood pressure: 159/90 mm Hg. Common Carotid Artery(Distal) PSV: 101.20 cm/s Internal Carotid Artery PSV- Proximal: 97.50 cm/s Mid-lon.20 cm/s Distal: 64.80 cm/s EDV - Proximal: 18.50 cm/s Mid-lon.60 cm/s Distal: 29.30 cm/s External Carotid Artery(Proximal) PSV: 244.30 cm/s ICA/CCA PSV ratio: 0.96 Renteria scale imaging description: Scattered calcified plaque at the bifurcation Percent internal carotid artery stenosis: Less than 50%. Vertebral artery: Flow direction is antegrade. Left side: Brachial blood pressure: 155/81 mm Hg. Common Carotid Artery(Distal) PSV: 84.50 cm/s Internal Carotid Artery PSV - Proximal: 76.10 cm/s Mid-lon.30 cm/s Distal: 42.80 cm/s EDV - Proximal: 22.60 cm/s Mid-lon.10 cm/s Distal: 19.70 cm/s External Carotid Artery(Proximal) PSV: 126.10 cm/s ICA/CCA PSV ratio: 1.31 Renteria scale imaging description: Mild plaque at the bifurcation Percent internal carotid artery stenosis: Less than 50%. Vertebral artery: Flow direction is antegrade. IMPRESSION: Bilateral less than 50% ICA stenoses Dictated by: Aj Montoya M.D. on 04/30/2016 at 19:40 Approved by: Aj Montoya M.D. on 04/30/2016 at 19:40 [facility] Diagnostic Imaging Department [place], [place] [id number] Patient Name: TIGRE SWEET MR#: [id number] [place] [facility] [place]ing Phys: Hannah Bautista DO Date of Service: 04/30/16 1748 PROCEDURE: CT BRAIN WITHOUT CONTRAST ([id number]) INDICATIONS: dizziness TECHNIQUE: Noncontrast 4.5 mm thick angled axial sections acquired from the foramen magnum to the vertex, with coronal reformats. COMPARISON: [facility], CT, CT BRAIN WO CON, 02/05/2015, 1:32. FINDINGS: Image quality: Excellent. CSF spaces: Basal cisterns are patent. No extra-axial fluid collections. The ventricles are symmetric in size and shape. Brain: No intracranial bleeds or masses. There is cerebral volume loss for age , with resultant ventricular and sulcal prominence. There are periventricular and deep white matter chronic small vessel ischemic changes. There is intracranial internal carotid artery atherosclerosis. Skull and face: Calvarium and visualized facial bones appear intact, without suspicious lesions. Sinuses: Left maxillary mucous retention cyst or polyp IMPRESSION: No acute intracranial process Dictated by: Aj Montoya M.D. on 04/30/2016 at 20:02 Approved by: Aj Montoya M.D. on 04/30/2016 at 20:04 [facility] Diagnostic Imaging [place] [address] Patient Name: TIGRE SWEET MR#: [id number] [place] [facility] [place] Phys: RosarioFarzadTiara, Singh Abreu Date of Service: 04/30/16 1158 PROCEDURE: CT ANG CHEST/ABD W/WO CONTRAST ([id number]) INDICATIONS: chest pain radiating to back TECHNIQUE: Precontrast 5 mm thick sections acquired from the lung apices to the iliac crests. After the administration of intravenous contrast, 3 mm thick sections again acquired from the lung apices to the iliac crests. 3-dimensional maximum intensity projection (MIP) oblique sagittal and coronal reformats were then acquired, and/or 3-dimensional volume rendering reformats. For radiation dose reduction, the following was used: automated exposure control. COMPARISON: [facility], CT, CHEST ANGIO-PE, 09/01/2008, 7:43. FINDINGS: Image quality: Excellent. AORTA: Intramural hematoma: Absent Maximum hematoma thickness: Not applicable. Focal contrast enhancement: Intramural blood pool (< 2 mm neck or imperceptible communication with aortic lumen): Absent. Ulcer-like projection (broad communication with aortic lumen > 3 mm): Absent. Dissection: Absent. Martin classification: Not applicable. Maximum aortic diameter: 3.5 cm. [If Martin A dissection, > 5.0 cm has a poorer prognosis. If Martin B dissection, > 4.0 cm has a poorer prognosis.] Periaortic hematoma: Absent. CHEST: Lungs and pleura: No acute airspace opacities. Small nodules noted in the lungs bilaterally which are not significantly changed compared to prior examination obtained 09/01/2008. No pleural effusions or pneumothorax. Central and peripheral airways are patent and normal in caliber. Mediastinum: Heart size is normal. Atherosclerotic ossifications noted in the aorta and the coronary vasculature. Endovascular stents noted in the coronary vasculature; please correlate with clinical history. No pericardial effusion. No mediastinal or hilar adenopathy by size criteria. Central pulmonary arteries are normal in size. Esophagus is normal in caliber. No hiatal hernias. Bones and chest wall: No axillary adenopathy by size criteria. Thyroid gland is within normal limits. No suspicious bony lesions. No vertebral body compression fractures. ABDOMEN: Vasculature: Celiac trunk and mesenteric arteries are patent. Renal arteries are also patent. Solid organs: Liver and spleen are normal in size. Gallbladder is within normal limits. Biliary system is non dilated. Pancreas enhances normally. No adrenal nodules. Both kidneys are normal in size and enhancement, without hydronephrosis. Right renal cyst is noted. Peripheral calcifications are noted in the left kidney may represent sequela of prior infection or infarction. Peritoneum and bowel: No free fluid or air. Bowel loops are normal in caliber and wall thickness. Nodes and vessels: No retroperitoneal or mesenteric adenopathy by size criteria. Inferior vena cava is normal in morphology. Bones: No suspicious bony lesions. No vertebral body compression fractures. Fixation hardware noted in the lower cervical spine. Miscellaneous: Small fat-containing umbilical ventral hernia is noted.. IMPRESSION: 1. No evidence of aortic dissection or aneurysm. 2. Atherosclerosis including the coronary vasculature. 3. Multiple, small, bilateral lung nodules stable compared to 09/01/2008 likely represent sequela prior granulomatous disease. 4. Small umbilical ventral hernia. Dictated by: Stephanie Smith MD, PhD on 04/30/2016 at 12:33 Approved by: Stephanie Smith MD, PhD on 04/30/2016 at 12:51 CXR 04/30/16 NAD Cardiac Echo Impressions [facility] [place] [address] Patient Name: TIGRE SWEET MR#: [id number] Location: [facility] Ordering Phys: Thaddeus Ludmila Roque DO Date of Service: 02/09/[address] [place] [id number] Echocardiogram Report Name: TIGRE SWEET MStudy Dereck e: 02/09/2016 Height: 68 in Hospital Exam Location: [facility] Weight: 217 lb Gender: Male BSA: 2.1 m2 : 1960 Age: 55 yrs BP: 135/91 mmHg Reason For Study: CHEST PAIN Ordering Physician: Performed By: Zeeshan Arauz Interpretation Summary Left ventricular systolic function is mildly reduced with the ejection fraction estimated to be 45-50% with mild global hypokinesis that is more prominent compared to the previous study, as well as severe hypokinesis in the mid posterior wall with associated echogenicity, suggestive of old scar, that is unchanged compared to the previous study. There is mild concentric left ventricular hypertrophy with diastolic parameters suggesting a pseudonormalization pattern, consistent with elevated filling pressures but this is unchanged compared to the previous study. The right ventricle is normal in size and function and appears unchanged compared to the previous study. Pulmonary artery pressures cannot be estimated because of the lack of a measurable TR jet velocity but the IVC suggests a low right atrial pressure of 3 mm Hg. There is mild biatrial enlargement. The left atrium has mildly decreased in size since the prior echo exam while the right atrium has mildly increased in size. There is no significant valvular heart disease. The ascending aorta is at the upper limits of normal in size but is unchanged compared to the previous study. Procedure: A two-dimensional transthoracic echocardiogram with color flow and Doppler was performed. The study quality was technically adequate. Comparison is made with the echocardiogram of 02/05/15. The patient was in sinus bradycardia with heart rates between 51-59 bpm during the exam. This is considerably slower compared to the previous study. Left Ventricle: The left ventricle is normal in size. There is mild concentric left ventricular hypertrophy. There is no thrombus. Left ventricular systolic function is mildly reduced. The ejection fraction is estimated to be 45-50%. There is mild global hypokinesis of the left ventricle. This is more prominent compared to the previous study. There is severe hypokinesis in the mid posterior wall with associated echogenicity, suggestive of old scar. This is unchanged compared to the previous study. Assessment of diastolic parameters suggests a pseudonormalization pattern, consistent with elevated filling pressures. This is unchanged compared to the previous study. Right Ventricle: The right ventricle is normal in size and function. This is unchanged compared to the previous study. Atria: There is mild biatrial enlargement. The left atrium has mildly decreased in size since the prior echo exam. The right atrium has mildly increased in size since the prior echo exam. The interatrial septum is intact with no evidence for an atrial septal defect. Mitral Valve: There is mild to moderate mitral annular calcification. There is trace mitral regurgitation. This is unchanged compared to the previous study. Aortic Valve: The aortic valve is trileaflet. The aortic valve opens well. There is no aortic valve stenosis. There is trace aortic regurgitation. Tricuspid Valve: The tricuspid valve is normal in structure and function. No tricuspid regurgitation. Pulmonary artery pressures cannot be estimated because of the lack of a measurable TR jet velocity. Pulmonic Valve: The pulmonic valve is normal in structure and function. There is no pulmonic valvular regurgitation. There is no significant valvular heart disease. Great Vessels: The aortic root is normal size. The ascending aorta is at the upper limits of normal in size. This is unchanged compared to the previous study. The pulmonary artery is normal size. The IVC is of normal diameter and collapses greater than 50% with a sniff. This suggests a low right atrial pressure of 3 mm Hg. Pericardium/ Pleura There is no pericardial effusion. There is no pleural effusion. MMode/2D Measurements & Calculations LVIDd: 5.4 cmLA dimension: 4.2 cm RA long axis: 5.0 cm Ao root diam: 3.2 cm LVIDs: 4.3 cm Aortic Jxn: 2.6 cm FS: 20.1 % LA A2 area: 21.4 cm RA area: 20.9 cm asc Aorta Diam EPSS: 1.3 cm LA A4 area: 27.4 cm RA vol: 74.8 ml IVSd: 1.2 cm LA length (vol) RA : 35.4 ml/m2 Ao Arch Diam LVPWd: 1.1 cm (Proximal trans.) LA vol: 81.9 ml LA vol index IVC diam: 1.3 cm EDV(MOD-sp2) LV michael. diameter/BSA LV sys. diameter/BSA : 108.3 ml (cm/m^2): 2.5 (cm/m^2): 2.0 Doppler Measurements & Calculations Ao V2 max MV E max rupesh MV E/A: 1.3 PA V2 max: 68.7 cm/sec : 149.6 cm/sec : 101.8 cm/sec Med Peak E' Rupesh PA mean P.1 mmHg Ao max PG MV A max rupesh PA Accel Time: 0.11 sec : 9.0 mmHg : 77.8 cm/sec E/E' med: 19.7 Ao mean PG Lat Peak E' Rupesh : 5.6 mmHg E/E' lat: 16.2 Pulm A Revs Dur MV A dur: 0.13 sec MV dec time Ao V2 mean PA V2 mean Pulm A Revs Dur - MV A : 0.13 sec : 114.4 cm/sec : 49.7 cm/sec Dur: -0.01 msec Ao V2 VTI: 35.5 cmPA pr(Accel) : 31.6 mmHg Reading Physician:11:44 AM [facility] Diagnostic Imaging Department [place], [place] [id number] Patient Name: TIGRE SWEET MR#: [id number] Location: [facility] Ordering Phys: JO-ANN OCHOA DO Date of Service: 02/08/16 1357 PROCEDURE: ONE DAY PHARMACOLOGICAL STRESS TEST. Rest and pharmacological stress myocardial perfusion SPECT with gated imaging and ejection fraction RADIOPHARMACEUTICAL: 9.2 mCi Tc-99m tetrofosmin IV at rest and 29.1 mCi Tc-99m tetrofosmin IV at peak effect of pharmacological stress. A [id number] was performed. INDICATIONS: Chest pain, history of coronary artery disease with cardiac catheterization in 2013. TECHNIQUE: Radiopharmaceutical was injected at peak stress test, and also at rest. SPECT images were obtained. SPECT myocardial perfusion images were displayed in short axis, horizontal long axis, and vertical long axis views. Gated images were reviewed using BlogCN software. COMPARISON: None. CARDIAC STRESS: Initially the patient attempted exercise stress test. He walked on the Chad protocol for about 4 minutes and 32 seconds, however, felt lightheaded and achieved only 66% of target heart rate. Hence, exercise stress test was converted to pharmacologic perfusion stress test. A pharmacologic stress test was performed under the supervision of attending staff using an infusion of Lexiscan as per protocol. Hemodynamic Data: Overall the patient remained hemodynamically stable. Initial blood pressure 150/92. Maximum blood pressure 194/104. Symptoms: The patient had lightheadedness. It happened during exercise, however, with Lexiscan, no symptoms were reported. Aminophylline: No aminophylline was given. EKG: Baseline rhythm was sinus with evidence of LVH and inferolateral T-wave inversion. During stress, there were no obvious new ischemic changes. There was no significant arrhythmia noted. FINDINGS: Raw Data: There appears to be adequate myocardial uptake. The patient's weight is 214 pounds. Gated Study: Resting and stress LV ejection fraction reported to be 48%. There appears to be mild global hypokinesis. Left Ventricle Function: Left ventricle end diastolic volume 181 mL, suggestive of dilated left ventricle. Myocardial Perfusion Scan: Stress supine, resting supine and stress prone images were compared to each other. It appears that the patient has predominantly-fixed, small-size, mildly-decreased perfusion of the basal inferior wall, extending into the basal inferoseptum. I do not see any obvious reversible ischemia. IMPRESSION: 1. No obvious reversible ischemia. 2. The patient has predominantly-fixed, small-size, mildly-decreased perfusion of the basal inferior wall, extending into the basal inferoseptum. This could be due to persistent tissue attenuation artifact, however, I cannot rule out the possibility of small basal inferior wall and inferoseptal infarction. The left ventricular end diastolic volume is 181 mL, suggestive of dilated left ventricle. Left ventricular ejection fraction reported to be 48% with global hypokinesis. As the patient has a history of excessive alcohol intake, there may be an element of alcohol-induced cardiomyopathy as well. Dictated by: Phill Chance M.D. on 02/08/2016 at 18:00 Transcribed by: LV on 02/09/2016 at 1:18 Approved by: Phill Chance M.D. on 02/10/2016 at 15:00 Assessment & Plan 1. Chest Pain: Unstable Angina. Patient will be given Morphine and PRN oxygen as needed. Will continue home oxygen, lisinopril and metoprolol. He has had a recent stress, thus no new stress will be ordered. Troponins will be trended, AM EKG is ordered. Telemonitoring. Nitro PRN. Plan to consult cardiology if symptoms worsen overnight. Continue heparin drip. AM Lipid panel and A1C are ordered Cardiology is consulted this AM, they will cath him tomorrow. Continue heparin drip. Troponins were negative overnight, no tele calls. 2. Extreme dizziness: DDX include stroke, autonomic dysfunction due to alcoholism and cervical radiculopathy. CT Head WO and carotid U/S are ordered: Negative studies as above 3. Alcoholism: CIWA protocol 4. Chronic hypertension: Continue home meds. BP is currently stable with Lisinopril. 5. CAD: Continue home meds Patient disposition: Will be observed overnight with plan to discharge home tomorrow if ACS is ruled out. GI Prophylaxis: Not indicated VTE Prophylaxis: Other (heparin drip) Resuscitation Status: CPR: Attempt Resuscitation Hannah Bautista DO May 01, 2016 16:27
[2016-05-02] VITALS (16 sets, daily range): BP systolic 124–176; BP diastolic 62–107; PULSE 46–94; RESP 14–18; O2SAT 94–99
[2016-05-02] MEDS: Sodium Chloride LOK Flush 10 mL Syringe IVFLUSH SCH ×3 (00:30→20:02)
--- NOTE | 2016-05-02 04:20 | NUR ---
NPO Pt NPO at midnight.
[2016-05-02 06:20] LABS: BASOPHILS % (AUTO) 0.5 % (0-3); EOSINOPHILS % (AUTO) 2.3 % (0-5); Mean Corpuscular Hemoglobin 31.5 pg (27.0-35.0); Mean Corpuscular Volume 89.6 fL (81-100); NEUTROPHILS % (AUTO) 59.4 % (40-74); Platelet Count 220 bil/L (150-400)
[2016-05-02] MEDS: Multivit-Miner-Folic Acid-Iron Tablet PO SCH (08:15)
[2016-05-02] MEDS: Lisinopril 40 Tablet PO SCH (08:16)
[2016-05-02] MEDS: MeTOProlol XL 50 mg ER24 Tablet PO SCH (08:30)
[2016-05-02] MEDS: Heparin 25K Unit/500mL 0.45 NS 25,000 UNIT in IV Premix 1 EACH IV SCH (13:27)
[2016-05-02] MEDS ORDERED: Heparin 1,000 Units/500 mL NS Premix IV ONE ×2 (14:07→15:35)
[2016-05-02] MEDS ORDERED: 0.9% Sodium Chloride 0 ML ONE (14:07)
[2016-05-02] MEDS ORDERED: Heparin 1,000 Unit/mL 10 mL Inj ONE ×2 (14:07→15:32)
[2016-05-02] MEDS ORDERED: Heparin 10,000 Unit/1,000 mL NS Premix IV ONE (15:32)
[2016-05-02] MEDS ORDERED: 0.9% Sodium Chloride 1,000 ML ONE (15:32)
--- NOTE | 2016-05-02 17:01 | CS94 ---
[address] [address] DIAGNOSTIC CARDIAC CATHETERIZATION PATIENT: TIGRE SWEET : 1960 MR#: [id number] ADMIT: 04/30/2016 JOB ID: [id number] SERVICE DATE: PROCEDURE: 1. Selective right and left coronary angiography. 2. Left heart catheterization. 3. Left ventriculogram. INDICATION: Recurrent chest pain. PROCEDURAL DETAILS: These are enumerated in the procedure log to which the reader and records are referred briefly. The procedure was started with a 5-Nicaraguan system, however, due to suboptimal imaging, we upsized to 6-Nicaraguan. ANGIOGRAPHIC FINDINGS: 1. Left main: No significant disease. 2. LAD: A moderate caliber, diffusely diseased vessel with disease of 10% to 20% in its entirety. In its mid segment, it has stents. These stents are widely patent. The two moderate caliber 1-1.5 mm diagonals have ostial 30-50% disease with no critical stenosis in the bodies. 3. Circumflex is dominant. It is diffusely diseased and has disease of 20% to 30% in its entirety. A small caliber ramus intermedius branch has an ostial 30% to 40% lesion. The circumflex in its mid segment has two stenoses of about 50% to 60%. These appear to be associated with the stent indicating candy wrapper-type of stent stenosis. It does not appear to be critical. The left PDA is free of any critical stenosis. 4. The right coronary is a small caliber vessel that takes off high as well as anteriorly. It is nondominant and diffusely diseased and essentially unchanged from the previous imaging. 5. Left heart catheterization revealed an LVEDP of 8. There was no gradient upon pullback. A hand injection was not very helpful in determining ejection fraction. An echocardiogram is recommended. SUMMARY: No critical stenosis is identified. Continue medical therapy.
--- NOTE | 2016-05-02 17:55 | NUR ---
CARMELLA PT WAS RECEIVED FROM [facility] [id number]. RIGHT GROIN MANUAL HOLD HAS REMAINED SOFT, NON TENDER, NO BLEEDING OR HEMATOMA NOTED. NO INTERVENTION WAS DONE. PT IS AWARE OF ACTIVITY RESTRICTIONS AND IS COMPLIANT. NS AT 100ML/HR. HE STATES HE STILL HAS THE LEFT SIDED CHEST PAIN THAT HE CAME IN WITH AND THAT IT IS ABOUT A 3/10. DR MAHMOOD WAS NOTIFIED. PLAN IS TO TRANSFER PT BACK TO [facility] AT 1900.
[2016-05-02] MEDS ORDERED: Sodium Chloride LOK Flush 10 mL Syringe IVFLUSH PRN (18:05)
[2016-05-02] MEDS ORDERED: Ondansetron 2 mg/mL 2 mL Inj IVPUSH PRN (18:05)
[2016-05-02] MEDS ORDERED: 0.9% Sodium Chloride 400 ML (4 HRS) IV ONE (18:05)
[2016-05-02] MEDS ORDERED: Atropine 1 mg/10 mL (Code) Syringe IVPUSH PRN (18:05)
[2016-05-02] MEDS ORDERED: 0.9% Sodium Chloride 250 ML BOLUS IV PRN (18:05)
--- NOTE | 2016-05-02 19:07 | PCM.PNMED ---
Subjective Date of Service May 02, 2016 Subjective Mr. Valiente was seen and examined this morning. He states pain level is about the same and understands he will be going to that catheterization lab sometime today. Denies anxiety, palpitations, headaches. No other concerns were expressed. The Exam Vital Signs Vital Sign - Last Date Time Temp Pulse Resp B/P Pulse Ox O2 Delivery O2 Flow Rate FiO2 05/02/16 18:00 49 16 136/89 99 Room Air 05/02/16 14:17 36.6 04/30/16 14:41 2 Intake and Output 05/01/16 05/01/16 05/02/16 Cumulative From/Thru 15:00 23:00 07:00 04/30/16 09:44 - 05/02/16 06:03 Intake Total 774 ml 752 ml 3240 ml Output Total 4050 ml 950 ml 5500 ml Balance -3276 ml -198 ml -2260 ml Intake Oral 500 ml 500 ml 2400 ml IV Total 274 ml 252 ml 840 ml Output Urine Total 4050 ml 950 ml 5500 ml # Voids 3 Exam Gen.: No acute distress watching TV HEENT: Normocephalic, atraumatic Heart: Regular rate and rhythm, no S3-S4 murmurs Lungs: CTA bilateral, no crackles or wheezes Abdomen: Obese Extremities: Negative for edema Psych: Negative for anxiety : Neuro: No focal deficits IVs and Medications IV Fluids None Medications Reviewed: Medications were reviewed in detail Lab and Diagnostics Result Diagram: 05/02/16 0705 05/02/16 0710 X-Rays, CTs and MRIs [facility] Diagnostic Imaging Department [place], [place] [id number] Patient Name: TIGRE SWEET MR#: [id number] Location: [facility] [place] Ordering Phys: Hannah Bautista DO Date of Service: 04/30/16 9978 PROCEDURE: US BILATERAL DUPLEX DOPPLER IMAGING OF THE CAROTIDS ([id number]) INDICATIONS: Neurological symptoms. dizziness TECHNIQUE: Color and pulse Doppler interrogation was performed of both carotid systems, with image documentation and velocity measurements. COMPARISON: None. FINDINGS: All stenosis calculations are based on NASCET criteria. Right side: Brachial blood pressure: 159/90 mm Hg. Common Carotid Artery(Distal) PSV: 101.20 cm/s Internal Carotid Artery PSV- Proximal: 97.50 cm/s Mid-lon.20 cm/s Distal: 64.80 cm/s EDV - Proximal: 18.50 cm/s Mid-lon.60 cm/s Distal: 29.30 cm/s External Carotid Artery(Proximal) PSV: 244.30 cm/s ICA/CCA PSV ratio: 0.96 Renteria scale imaging description: Scattered calcified plaque at the bifurcation Percent internal carotid artery stenosis: Less than 50%. Vertebral artery: Flow direction is antegrade. Left side: Brachial blood pressure: 155/81 mm Hg. Common Carotid Artery(Distal) PSV: 84.50 cm/s Internal Carotid Artery PSV - Proximal: 76.10 cm/s Mid-lon.30 cm/s Distal: 42.80 cm/s EDV - Proximal: 22.60 cm/s Mid-lon.10 cm/s Distal: 19.70 cm/s External Carotid Artery(Proximal) PSV: 126.10 cm/s ICA/CCA PSV ratio: 1.31 Renteria scale imaging description: Mild plaque at the bifurcation Percent internal carotid artery stenosis: Less than 50%. Vertebral artery: Flow direction is antegrade. IMPRESSION: Bilateral less than 50% ICA stenoses Dictated by: Aj Montoya M.D. on 04/30/2016 at 19:40 Approved by: Aj Montoya M.D. on 04/30/2016 at 19:40 [facility] Diagnostic [place] [address] Patient Name: TIGRE SWEET MR#: [id number] Location: [facility] [place] Ordering Phys: Hannah Bautista DO Date of Service: 04/30/16 1748 PROCEDURE: CT BRAIN WITHOUT CONTRAST ([id number]) INDICATIONS: dizziness TECHNIQUE: Noncontrast 4.5 mm thick angled axial sections acquired from the foramen magnum to the vertex, with coronal reformats. COMPARISON: [facility], CT, CT BRAIN WO CON, 02/05/2015, 1:32. FINDINGS: Image quality: Excellent. CSF spaces: Basal cisterns are patent. No extra-axial fluid collections. The ventricles are symmetric in size and shape. Brain: No intracranial bleeds or masses. There is cerebral volume loss for age , with resultant ventricular and sulcal prominence. There are periventricular and deep white matter chronic small vessel ischemic changes. There is intracranial internal carotid artery atherosclerosis. Skull and face: Calvarium and visualized facial bones appear intact, without suspicious lesions. Sinuses: Left maxillary mucous retention cyst or polyp IMPRESSION: No acute intracranial process Dictated by: Aj Montoya M.D. on 04/30/2016 at 20:02 Approved by: Aj Montoya M.D. on 04/30/2016 at 20:04 [facility] Diagnostic [place] [address] Patient Name: TIGRE SWEET MR#: [id number] Location: [facility] [place] Ordering Phys: Singh Chen DO Date of Service: 04/30/16 1158 PROCEDURE: CT ANG CHEST/ABD W/WO CONTRAST ([id number]) INDICATIONS: chest pain radiating to back TECHNIQUE: Precontrast 5 mm thick sections acquired from the lung apices to the iliac crests. After the administration of intravenous contrast, 3 mm thick sections again acquired from the lung apices to the iliac crests. 3-dimensional maximum intensity projection (MIP) oblique sagittal and coronal reformats were then acquired, and/or 3-dimensional volume rendering reformats. For radiation dose reduction, the following was used: automated exposure control. COMPARISON: [facility], CT, CHEST ANGIO-PE, 09/01/2008, 7:43. FINDINGS: Image quality: Excellent. AORTA: Intramural hematoma: Absent Maximum hematoma thickness: Not applicable. Focal contrast enhancement: Intramural blood pool (< 2 mm neck or imperceptible communication with aortic lumen): Absent. Ulcer-like projection (broad communication with aortic lumen > 3 mm): Absent. Dissection: Absent. Martin classification: Not applicable. Maximum aortic diameter: 3.5 cm. [If [place] A dissection, > 5.0 cm has a poorer prognosis. If [place] B dissection, > 4.0 cm has a poorer prognosis.] Periaortic hematoma: Absent. CHEST: Lungs and pleura: No acute airspace opacities. Small nodules noted in the lungs bilaterally which are not significantly changed compared to prior examination obtained 09/01/2008. No pleural effusions or pneumothorax. Central and peripheral airways are patent and normal in caliber. Mediastinum: Heart size is normal. Atherosclerotic ossifications noted in the aorta and the coronary vasculature. Endovascular stents noted in the coronary vasculature; please correlate with clinical history. No pericardial effusion. No mediastinal or hilar adenopathy by size criteria. Central pulmonary arteries are normal in size. Esophagus is normal in caliber. No hiatal hernias. Bones and chest wall: No axillary adenopathy by size criteria. Thyroid gland is within normal limits. No suspicious bony lesions. No vertebral body compression fractures. ABDOMEN: Vasculature: Celiac trunk and mesenteric arteries are patent. Renal arteries are also patent. Solid organs: Liver and spleen are normal in size. Gallbladder is within normal limits. Biliary system is non dilated. Pancreas enhances normally. No adrenal nodules. Both kidneys are normal in size and enhancement, without hydronephrosis. Right renal cyst is noted. Peripheral calcifications are noted in the left kidney may represent sequela of prior infection or infarction. Peritoneum and bowel: No free fluid or air. Bowel loops are normal in caliber and wall thickness. Nodes and vessels: No retroperitoneal or mesenteric adenopathy by size criteria. Inferior vena cava is normal in morphology. Bones: No suspicious bony lesions. No vertebral body compression fractures. Fixation hardware noted in the lower cervical spine. Miscellaneous: Small fat-containing umbilical ventral hernia is noted.. IMPRESSION: 1. No evidence of aortic dissection or aneurysm. 2. Atherosclerosis including the coronary vasculature. 3. Multiple, small, bilateral lung nodules stable compared to 09/01/2008 likely represent sequela prior granulomatous disease. 4. Small umbilical ventral hernia. Dictated by: Stephanie Smith MD, PhD on 04/30/2016 at 12:33 Approved by: Stephanie Smith MD, PhD on 04/30/2016 at 12:51 CXR 04/30/16 NAD Cardiac Echo Impressions [facility] Diagnostic Imaging Department [place], [place] [id number] Patient Name: TIGRE SWEET MR#: [id number] Location: [facility] Ordering Phys: Ludmila Travis DO Date of Service: 02/09/[address] [place] [id number] Echocardiogram Report Name: TIGRE SWEET MStudy Dereck e: 02/09/2016 Height: 68 in Hospital Exam Location: [facility] Weight: 217 lb Gender: Male BSA: 2.1 m2 : 1960 Age: 55 yrs BP: 135/91 mmHg Reason For Study: CHEST PAIN Ordering Physician: Performed By: Zeeshan Arauz Interpretation Summary Left ventricular systolic function is mildly reduced with the ejection fraction estimated to be 45-50% with mild global hypokinesis that is more prominent compared to the previous study, as well as severe hypokinesis in the mid posterior wall with associated echogenicity, suggestive of old scar, that is unchanged compared to the previous study. There is mild concentric left ventricular hypertrophy with diastolic parameters suggesting a pseudonormalization pattern, consistent with elevated filling pressures but this is unchanged compared to the previous study. The right ventricle is normal in size and function and appears unchanged compared to the previous study. Pulmonary artery pressures cannot be estimated because of the lack of a measurable TR jet velocity but the IVC suggests a low right atrial pressure of 3 mm Hg. There is mild biatrial enlargement. The left atrium has mildly decreased in size since the prior echo exam while the right atrium has mildly increased in size. There is no significant valvular heart disease. The ascending aorta is at the upper limits of normal in size but is unchanged compared to the previous study. Procedure: A two-dimensional transthoracic echocardiogram with color flow and Doppler was performed. The study quality was technically adequate. Comparison is made with the echocardiogram of 02/05/15. The patient was in sinus bradycardia with heart rates between 51-59 bpm during the exam. This is considerably slower compared to the previous study. Left Ventricle: The left ventricle is normal in size. There is mild concentric left ventricular hypertrophy. There is no thrombus. Left ventricular systolic function is mildly reduced. The ejection fraction is estimated to be 45-50%. There is mild global hypokinesis of the left ventricle. This is more prominent compared to the previous study. There is severe hypokinesis in the mid posterior wall with associated echogenicity, suggestive of old scar. This is unchanged compared to the previous study. Assessment of diastolic parameters suggests a pseudonormalization pattern, consistent with elevated filling pressures. This is unchanged compared to the previous study. Right Ventricle: The right ventricle is normal in size and function. This is unchanged compared to the previous study. Atria: There is mild biatrial enlargement. The left atrium has mildly decreased in size since the prior echo exam. The right atrium has mildly increased in size since the prior echo exam. The interatrial septum is intact with no evidence for an atrial septal defect. Mitral Valve: There is mild to moderate mitral annular calcification. There is trace mitral regurgitation. This is unchanged compared to the previous study. Aortic Valve: The aortic valve is trileaflet. The aortic valve opens well. There is no aortic valve stenosis. There is trace aortic regurgitation. Tricuspid Valve: The tricuspid valve is normal in structure and function. No tricuspid regurgitation. Pulmonary artery pressures cannot be estimated because of the lack of a measurable TR jet velocity. Pulmonic Valve: The pulmonic valve is normal in structure and function. There is no pulmonic valvular regurgitation. There is no significant valvular heart disease. Great Vessels: The aortic root is normal size. The ascending aorta is at the upper limits of normal in size. This is unchanged compared to the previous study. The pulmonary artery is normal size. The IVC is of normal diameter and collapses greater than 50% with a sniff. This suggests a low right atrial pressure of 3 mm Hg. Pericardium/ Pleura There is no pericardial effusion. There is no pleural effusion. MMode/2D Measurements & Calculations LVIDd: 5.4 cmLA dimension: 4.2 cm RA long axis: 5.0 cm Ao root diam: 3.2 cm LVIDs: 4.3 cm Aortic Jxn: 2.6 cm FS: 20.1 % LA A2 area: 21.4 cm RA area: 20.9 cm asc Aorta Diam EPSS: 1.3 cm LA A4 area: 27.4 cm RA vol: 74.8 ml IVSd: 1.2 cm LA length (vol) RA : 35.4 ml/m2 Ao Arch Diam LVPWd: 1.1 cm (Proximal trans.) LA vol: 81.9 ml LA vol index IVC diam: 1.3 cm EDV(MOD-sp2) LV michael. diameter/BSA LV sys. diameter/BSA : 108.3 ml (cm/m^2): 2.5 (cm/m^2): 2.0 Doppler Measurements & Calculations Ao V2 max MV E max rupesh MV E/A: 1.3 PA V2 max: 68.7 cm/sec : 149.6 cm/sec : 101.8 cm/sec Med Peak E' Rupesh PA mean P.1 mmHg Ao max PG MV A max rupesh PA Accel Time: 0.11 sec : 9.0 mmHg : 77.8 cm/sec E/E' med: 19.7 Ao mean PG Lat Peak E' Rupesh : 5.6 mmHg E/E' lat: 16.2 Pulm A Revs Dur MV A dur: 0.13 sec MV dec time Ao V2 mean PA V2 mean Pulm A Revs Dur - MV A : 0.13 sec : 114.4 cm/sec : 49.7 cm/sec Dur: -0.01 msec Ao V2 VTI: 35.5 cmPA pr(Accel) : 31.6 mmHg Reading Physician:11:44 AM [facility] Diagnostic Imaging Department [place], [place] [id number] Patient Name: TIGRE SWEET MR#: [id number] Location: [facility] Ordering Phys: JO-ANN OCHAO DO Date of Service: 02/08/16 1357 PROCEDURE: ONE DAY PHARMACOLOGICAL STRESS TEST. Rest and pharmacological stress myocardial perfusion SPECT with gated imaging and ejection fraction RADIOPHARMACEUTICAL: 9.2 mCi Tc-99m tetrofosmin IV at rest and 29.1 mCi Tc-99m tetrofosmin IV at peak effect of pharmacological stress. A [id number] was performed. INDICATIONS: Chest pain, history of coronary artery disease with cardiac catheterization in 2013. TECHNIQUE: Radiopharmaceutical was injected at peak stress test, and also at rest. SPECT images were obtained. SPECT myocardial perfusion images were displayed in short axis, horizontal long axis, and vertical long axis views. Gated images were reviewed using [employer] software. COMPARISON: None. CARDIAC STRESS: Initially the patient attempted exercise stress test. He walked on the Chad protocol for about 4 minutes and 32 seconds, however, felt lightheaded and achieved only 66% of target heart rate. Hence, exercise stress test was converted to pharmacologic perfusion stress test. A pharmacologic stress test was performed under the supervision of attending staff using an infusion of Lexiscan as per protocol. Hemodynamic Data: Overall the patient remained hemodynamically stable. Initial blood pressure 150/92. Maximum blood pressure 194/104. Symptoms: The patient had lightheadedness. It happened during exercise, however, with Lexiscan, no symptoms were reported. Aminophylline: No aminophylline was given. EKG: Baseline rhythm was sinus with evidence of LVH and inferolateral T-wave inversion. During stress, there were no obvious new ischemic changes. There was no significant arrhythmia noted. FINDINGS: Raw Data: There appears to be adequate myocardial uptake. The patient's weight is 214 pounds. Gated Study: Resting and stress LV ejection fraction reported to be 48%. There appears to be mild global hypokinesis. Left Ventricle Function: Left ventricle end diastolic volume 181 mL, suggestive of dilated left ventricle. Myocardial Perfusion Scan: Stress supine, resting supine and stress prone images were compared to each other. It appears that the patient has predominantly-fixed, small-size, mildly-decreased perfusion of the basal inferior wall, extending into the basal inferoseptum. I do not see any obvious reversible ischemia. IMPRESSION: 1. No obvious reversible ischemia. 2. The patient has predominantly-fixed, small-size, mildly-decreased perfusion of the basal inferior wall, extending into the basal inferoseptum. This could be due to persistent tissue attenuation artifact, however, I cannot rule out the possibility of small basal inferior wall and inferoseptal infarction. The left ventricular end diastolic volume is 181 mL, suggestive of dilated left ventricle. Left ventricular ejection fraction reported to be 48% with global hypokinesis. As the patient has a history of excessive alcohol intake, there may be an element of alcohol-induced cardiomyopathy as well. Dictated by: Phill Chance M.D. on 02/08/2016 at 18:00 Transcribed by: LV on 02/09/2016 at 1:18 Approved by: Phill Chance M.D. on 02/10/2016 at 15:00 Assessment & Plan 1. Chest Pain: Unstable Angina. Patient will be given Morphine and PRN oxygen as needed. Will continue home oxygen, lisinopril and metoprolol. He has had a recent stress, thus no new stress will be ordered. Troponins will be trended, AM EKG is ordered. Telemonitoring. Nitro PRN. Plan to consult cardiology if symptoms worsen overnight. Continue heparin drip. AM Lipid panel and A1C are ordered. Cardiology is consulted this AM, they will cath him tomorrow. Continue heparin drip. Troponins were negative overnight, no tele calls. Patient was taken the research laboratory specialist. No acute findings per cardiology reports. We will pursue other etiologies such as cholelithiasis. A1c is 5.7. Lipids lipid panel within normal limits. 2. Extreme dizziness: DDX include stroke, autonomic dysfunction due to alcoholism and cervical radiculopathy. CT Head WO and carotid U/S are ordered: Negative studies as above 3. Alcoholism: CIWA protocol 4. Chronic hypertension: Continue home meds. BP is currently stable with Lisinopril. 5. CAD: Continue home meds Patient disposition: ACS is ruled out. Considering other etiologies for his pain possible discharge tomorrow if no concern for cholelithiasis. Pain Evaluation: Pain not Controlled GI Prophylaxis: Not indicated VTE Prophylaxis: Other (heparin drip) Resuscitation Status: CPR: Attempt Resuscitation Bautista,Hannahbrandyn FRANKLIN May 02, 2016 19:07
--- NOTE | 2016-05-02 19:44 | NUR ---
CARMELLA TRANSFER PT AND HIS NURSING CARE WERE TRANSFERRED BACK TO ROOM 239-[facility] [place] [id number]. REPORT AND RN TO RN BEDSIDE HAND OFF WAS DONE WITH MARILYNN BURNETT. TELE CONFIRMED WITH SCHEDULE ANNOUNCER. RIGHT GROIN HAS REMAINED SOFT, NO BLEEDING OR HEMATOMA PRESENT.
--- NOTE | 2016-05-02 20:05 | NUR ---
Back to room 239-2 pt back to his room by Megan SUBRAMANIAN from [facility]. received report at the bed side. pt A&O x3. Right groin soft, no bleeding or hematoma present. posterior tibial pulse palpable and strong. IV NS running 100ml/hr. chest pain 3/10,which is tolerable per pt. will continue to monitor.
[2016-05-03] VITALS (8 sets, daily range): BP systolic 139–187; BP diastolic 84–111; PULSE 53–75; RESP 12–18; O2SAT 96–100
[2016-05-03] MEDS: Sodium Chloride LOK Flush 10 mL Syringe IVFLUSH SCH ×3 (05:09→15:49)
--- NOTE | 2016-05-03 05:40 | NUR ---
BP pt BP 158/105 on right arm, and 187/111 on left arm. pt is asymptomatic. chidi HS hospitalist. received ordered to give Lisinopril dose scheduled for 0830 now. pharmacist changed the timing to now. Right groin soft, no bleeding or hematoma present. posterior tibial pulse palpable and strong. will continue to monitor.
[2016-05-03] MEDS: MeTOProlol XL 50 mg ER24 Tablet PO SCH (07:57)
[2016-05-03 08:13] LABS: BASOPHILS % (AUTO) 0.1 % (0-3); EOSINOPHILS % (AUTO) 1.3 % (0-5); Mean Corpuscular Hemoglobin 31.5 pg (27.0-35.0); Mean Corpuscular Volume 87.5 fL (81-100); NEUTROPHILS % (AUTO) 74.1 % (40-74); Platelet Count 214 bil/L (150-400)
--- NOTE | 2016-05-03 09:11 | PCM.DIMED ---
Discharge Instructions Date of Service May 03, 2016 Dates of Hospitalization Apr 30, 2016 at 13:59 Discharge Diagnosis Discharge Diagnosis CAD s/p LAD stent ACS ruled out, CHF, HTN, Hyperlipidemia, CVA, Brain aneurysm, Pectoral muscle spasm Medication Instructions Please hold Aspirin until you see your alternative energy technician to discuss the need for both plavix and Aspirin. Test Results [facility] Diagnostic [place] [address] Patient Name: TIGRE SWEET MR#: [id number] Location[place] [facility] [place] [facility] [place] Ordering Phys: Hannah Bautista DO Date of Service: 04/30/16 174 PROCEDURE: CT BRAIN WITHOUT CONTRAST ([id number]) INDICATIONS: dizziness TECHNIQUE: Noncontrast 4.5 mm thick angled axial sections acquired from the foramen magnum to the vertex, with coronal reformats. COMPARISON: [facility], CT, CT BRAIN WO CON, 02/05/2015, 1:32. FINDINGS: Image quality: Excellent. CSF spaces: Basal cisterns are patent. No extra-axial fluid collections. The ventricles are symmetric in size and shape. Brain: No intracranial bleeds or masses. There is cerebral volume loss for age , with resultant ventricular and sulcal prominence. There are periventricular and deep white matter chronic small vessel ischemic changes. There is intracranial internal carotid artery atherosclerosis. Skull and face: Calvarium and visualized facial bones appear intact, without suspicious lesions. Sinuses: Left maxillary mucous retention cyst or polyp IMPRESSION: No acute intracranial process Dictated by: Aj Montoya M.D. on 04/30/2016 at 20:02 Approved by: Aj Montoya M.D. on 04/30/2016 at 20:04 [facility] Diagnostic [place] [address] Patient Name: TIGRE SWEET MR#: [id number] [place] [facility] [place] [facility] [place] Ordering Phys: Hannah Bautista DO Date of Service: 04/30/161747 PROCEDURE: US BILATERAL DUPLEX DOPPLER IMAGING OF THE CAROTIDS ([id number]) INDICATIONS: Neurological symptoms. dizziness TECHNIQUE: Color and pulse Doppler interrogation was performed of both carotid systems, with image documentation and velocity measurements. COMPARISON: None. FINDINGS: All stenosis calculations are based on NASCET criteria. Right side: Brachial blood pressure: 159/90 mm Hg. Common Carotid Artery(Distal) PSV: 101.20 cm/s Internal Carotid Artery PSV- Proximal: 97.50 cm/s Mid-lon.20 cm/s Distal: 64.80 cm/s EDV - Proximal: 18.50 cm/s Mid-lon.60 cm/s Distal: 29.30 cm/s External Carotid Artery(Proximal) PSV: 244.30 cm/s ICA/CCA PSV ratio: 0.96 Renteria scale imaging description: Scattered calcified plaque at the bifurcation Percent internal carotid artery stenosis: Less than 50%. Vertebral artery: Flow direction is antegrade. Left side: Brachial blood pressure: 155/81 mm Hg. Common Carotid Artery(Distal) PSV: 84.50 cm/s Internal Carotid Artery PSV - Proximal: 76.10 cm/s Mid-lon.30 cm/s Distal: 42.80 cm/s EDV - Proximal: 22.60 cm/s Mid-lon.10 cm/s Distal: 19.70 cm/s External Carotid Artery(Proximal) PSV: 126.10 cm/s ICA/CCA PSV ratio: 1.31 Renteria scale imaging description: Mild plaque at the bifurcation Percent internal carotid artery stenosis: Less than 50%. Vertebral artery: Flow direction is antegrade. IMPRESSION: Bilateral less than 50% ICA stenoses Dictated by: Aj Montoya M.D. on 04/30/2016 at 19:40 Approved by: Aj Montoya M.D. on 04/30/2016 at 19:40 [place] [address] DIAGNOSTIC CARDIAC CATHETERIZATION PATIENT: TIGRE SWEET : 1960 MR#: [id number] ADMIT: 04/30/2016 JOB ID: [id number] SERVICE DATE: PROCEDURE: 1. Selective right and left coronary angiography. 2. Left heart catheterization. 3. Left ventriculogram. INDICATION: Recurrent chest pain. PROCEDURAL DETAILS: These are enumerated in the procedure log to which the reader and records are referred briefly. The procedure was started with a 5-Stateless system, however, due to suboptimal imaging, we upsized to 6-Stateless. ANGIOGRAPHIC FINDINGS: 1. Left main: No significant disease. 2. LAD: A moderate caliber, diffusely diseased vessel with disease of 10% to 20% in its entirety. In its mid segment, it has stents. These stents are widely patent. The two moderate caliber 1-1.5 mm diagonals have ostial 30-50% disease with no critical stenosis in the bodies. 3. Circumflex is dominant. It is diffusely diseased and has disease of 20% to 30% in its entirety. A small caliber ramus intermedius branch has an ostial 30% to 40% lesion. The circumflex in its mid segment has two stenoses of about 50% to 60%. These appear to be associated with the stent indicating candy wrapper-type of stent stenosis. It does not appear to be critical. The left PDA is free of any critical stenosis. 4. The right coronary is a small caliber vessel that takes off high as well as anteriorly. It is nondominant and diffusely diseased and essentially unchanged from the previous imaging. 5. Left heart catheterization revealed an LVEDP of 8. There was no gradient upon pullback. A hand injection was not very helpful in determining ejection fraction. An echocardiogram is recommended. SUMMARY: No critical stenosis is identified. Continue medical therapy. Tyler Patel MD 05/02/16 7194 Report status: Draft Transcribed by: BECCA 05/02/16 8615 REPORT#: [id number] cc: Iggy Hdz MD; Tyler Patel MD Diet Heart Healthy Activity No restrictions Call your provider Fever or Chills, Shortness of breath, Bleeding, Chest pain, Vomitting, Excessive diarrhea, Weakness (unilateral), Other Patient Instructions Please hold aspirin till you see your alternative energy technician to discuss the need for dual therapy. Follow-up plan Please see your PCP in 2 weeks. Please f/u with your alternative energy technician in one week. Hannah Bautista DO May 03, 2016 09:11
[2016-05-03] MEDS ORDERED: CYCL10TA9 PO (09:12)
--- NOTE | 2016-05-03 09:13 | PCM.DC.MED ---
Discharge Summary Date of Service May 03, 2016 Dates of Hospitalization Date of Hospital Admission Apr 30, 2016 at 13:59 Providers: Admitting Physician: Kevin Mahmood DO Primary Care Physician: Iggy Hdz MD Attending Physician: Kevin Mahmood DO Diagnosis at Time of Discharge Diagnosis at Time of Discharge CAD s/p LAD stent ACS ruled out, CHF, HTN, Hyperlipidemia, CVA, Brain aneurysm, Pectoral muscle spasm Procedures XRay, CTs & MRIs [facility] [place] [address] Patient Name: TIGRE SWEET MR#: [id number] Location: [facility] [place] Ordering Phys: Kevin Mahmood DO Date of Service: 04/30/16 1748 PROCEDURE: US BILATERAL DUPLEX DOPPLER IMAGING OF THE CAROTIDS ([id number]) INDICATIONS: Neurological symptoms. dizziness TECHNIQUE: Color and pulse Doppler interrogation was performed of both carotid systems, with image documentation and velocity measurements. COMPARISON: None. FINDINGS: All stenosis calculations are based on NASCET criteria. Right side: Brachial blood pressure: 159/90 mm Hg. Common Carotid Artery(Distal) PSV: 101.20 cm/s Internal Carotid Artery PSV- Proximal: 97.50 cm/s Mid-lon.20 cm/s Distal: 64.80 cm/s EDV - Proximal: 18.50 cm/s Mid-lon.60 cm/s Distal: 29.30 cm/s External Carotid Artery(Proximal) PSV: 244.30 cm/s ICA/CCA PSV ratio: 0.96 Renteria scale imaging description: Scattered calcified plaque at the bifurcation Percent internal carotid artery stenosis: Less than 50%. Vertebral artery: Flow direction is antegrade. Left side: Brachial blood pressure: 155/81 mm Hg. Common Carotid Artery(Distal) PSV: 84.50 cm/s Internal Carotid Artery PSV - Proximal: 76.10 cm/s Mid-lon.30 cm/s Distal: 42.80 cm/s EDV - Proximal: 22.60 cm/s Mid-lon.10 cm/s Distal: 19.70 cm/s External Carotid Artery(Proximal) PSV: 126.10 cm/s ICA/CCA PSV ratio: 1.31 Renteria scale imaging description: Mild plaque at the bifurcation Percent internal carotid artery stenosis: Less than 50%. Vertebral artery: Flow direction is antegrade. IMPRESSION: Bilateral less than 50% ICA stenoses Dictated by: Aj Montoya M.D. on 04/30/2016 at 19:40 Approved by: Aj Montoya M.D. on 04/30/2016 at 19:40 [facility] Diagnostic Imaging Department [place], [place] [id number] Patient Name: TIGRE SWEET MR#: [id number] Location: [facility] [place] Ordering Phys: Michele Kevin Margarita DO Date of Service: 04/30/16 1748 PROCEDURE: CT BRAIN WITHOUT CONTRAST ([id number]) INDICATIONS: dizziness TECHNIQUE: Noncontrast 4.5 mm thick angled axial sections acquired from the foramen magnum to the vertex, with coronal reformats. COMPARISON: [facility], CT, CT BRAIN WO CON, 02/05/2015, 1:32. FINDINGS: Image quality: Excellent. CSF spaces: Basal cisterns are patent. No extra-axial fluid collections. The ventricles are symmetric in size and shape. Brain: No intracranial bleeds or masses. There is cerebral volume loss for age , with resultant ventricular and sulcal prominence. There are periventricular and deep white matter chronic small vessel ischemic changes. There is intracranial internal carotid artery atherosclerosis. Skull and face: Calvarium and visualized facial bones appear intact, without suspicious lesions. Sinuses: Left maxillary mucous retention cyst or polyp IMPRESSION: No acute intracranial process Dictated by: Aj Montoya M.D. on 04/30/2016 at 20:02 Approved by: Aj Montoya M.D. on 04/30/2016 at 20:04 [facility] [place] [address] Patient Name: TIGRE SWEET MR#: [id number] [place] [facility] [place] Ordering Phys: Singh Chen DO Date of Service: 04/30/16 1158 PROCEDURE: CT ANG CHEST/ABD W/WO CONTRAST ([id number]) INDICATIONS: chest pain radiating to back TECHNIQUE: Precontrast 5 mm thick sections acquired from the lung apices to the iliac crests. After the administration of intravenous contrast, 3 mm thick sections again acquired from the lung apices to the iliac crests. 3-dimensional maximum intensity projection (MIP) oblique sagittal and coronal reformats were then acquired, and/or 3-dimensional volume rendering reformats. For radiation dose reduction, the following was used: automated exposure control. COMPARISON: [facility], CT, CHEST ANGIO-PE, 09/01/2008, 7:43. FINDINGS: Image quality: Excellent. AORTA: Intramural hematoma: Absent Maximum hematoma thickness: Not applicable. Focal contrast enhancement: Intramural blood pool (< 2 mm neck or imperceptible communication with aortic lumen): Absent. Ulcer-like projection (broad communication with aortic lumen > 3 mm): Absent. Dissection: Absent. Martin classification: Not applicable. Maximum aortic diameter: 3.5 cm. [If [place] A dissection, > 5.0 cm has a poorer prognosis. If [place] B dissection, > 4.0 cm has a poorer prognosis.] Periaortic hematoma: Absent. CHEST: Lungs and pleura: No acute airspace opacities. Small nodules noted in the lungs bilaterally which are not significantly changed compared to prior examination obtained 09/01/2008. No pleural effusions or pneumothorax. Central and peripheral airways are patent and normal in caliber. Mediastinum: Heart size is normal. Atherosclerotic ossifications noted in the aorta and the coronary vasculature. Endovascular stents noted in the coronary vasculature; please correlate with clinical history. No pericardial effusion. No mediastinal or hilar adenopathy by size criteria. Central pulmonary arteries are normal in size. Esophagus is normal in caliber. No hiatal hernias. Bones and chest wall: No axillary adenopathy by size criteria. Thyroid gland is within normal limits. No suspicious bony lesions. No vertebral body compression fractures. ABDOMEN: Vasculature: Celiac trunk and mesenteric arteries are patent. Renal arteries are also patent. Solid organs: Liver and spleen are normal in size. Gallbladder is within normal limits. Biliary system is non dilated. Pancreas enhances normally. No adrenal nodules. Both kidneys are normal in size and enhancement, without hydronephrosis. Right renal cyst is noted. Peripheral calcifications are noted in the left kidney may represent sequela of prior infection or infarction. Peritoneum and bowel: No free fluid or air. Bowel loops are normal in caliber and wall thickness. Nodes and vessels: No retroperitoneal or mesenteric adenopathy by size criteria. Inferior vena cava is normal in morphology. Bones: No suspicious bony lesions. No vertebral body compression fractures. Fixation hardware noted in the lower cervical spine. Miscellaneous: Small fat-containing umbilical ventral hernia is noted.. IMPRESSION: 1. No evidence of aortic dissection or aneurysm. 2. Atherosclerosis including the coronary vasculature. 3. Multiple, small, bilateral lung nodules stable compared to 09/01/2008 likely represent sequela prior granulomatous disease. 4. Small umbilical ventral hernia. Dictated by: Stephanie Simth MD, PhD on 04/30/2016 at 12:33 Approved by: Stephanie Smith MD, PhD on 04/30/2016 at 12:51 CXR 04/30/16 NAD Cardiac Echo Impression [facility] Diagnostic Imaging Department [place], [place] [id number] Patient Name: TIGRE SWEET MR#: [id number] Location: [facility] Ordering Phys: Thaddeus Ludmila Mya FARNKLIN Date of Service: 02/09/[address] [address] Echocardiogram Report Name: TIGRE SWEET MStudy Dereck e: 02/09/2016 Height: 68 in Hospital Exam Location: [facility] Weight: 217 lb Gender: Male BSA: 2.1 m2 : 1960 Age: 55 yrs BP: 135/91 mmHg Reason For Study: CHEST PAIN Ordering Physician: Performed By: Zeeshan Arauz Interpretation Summary Left ventricular systolic function is mildly reduced with the ejection fraction estimated to be 45-50% with mild global hypokinesis that is more prominent compared to the previous study, as well as severe hypokinesis in the mid posterior wall with associated echogenicity, suggestive of old scar, that is unchanged compared to the previous study. There is mild concentric left ventricular hypertrophy with diastolic parameters suggesting a pseudonormalization pattern, consistent with elevated filling pressures but this is unchanged compared to the previous study. The right ventricle is normal in size and function and appears unchanged compared to the previous study. Pulmonary artery pressures cannot be estimated because of the lack of a measurable TR jet velocity but the IVC suggests a low right atrial pressure of 3 mm Hg. There is mild biatrial enlargement. The left atrium has mildly decreased in size since the prior echo exam while the right atrium has mildly increased in size. There is no significant valvular heart disease. The ascending aorta is at the upper limits of normal in size but is unchanged compared to the previous study. Procedure: A two-dimensional transthoracic echocardiogram with color flow and Doppler was performed. The study quality was technically adequate. Comparison is made with the echocardiogram of 02/05/15. The patient was in sinus bradycardia with heart rates between 51-59 bpm during the exam. This is considerably slower compared to the previous study. Left Ventricle: The left ventricle is normal in size. There is mild concentric left ventricular hypertrophy. There is no thrombus. Left ventricular systolic function is mildly reduced. The ejection fraction is estimated to be 45-50%. There is mild global hypokinesis of the left ventricle. This is more prominent compared to the previous study. There is severe hypokinesis in the mid posterior wall with associated echogenicity, suggestive of old scar. This is unchanged compared to the previous study. Assessment of diastolic parameters suggests a pseudonormalization pattern, consistent with elevated filling pressures. This is unchanged compared to the previous study. Right Ventricle: The right ventricle is normal in size and function. This is unchanged compared to the previous study. Atria: There is mild biatrial enlargement. The left atrium has mildly decreased in size since the prior echo exam. The right atrium has mildly increased in size since the prior echo exam. The interatrial septum is intact with no evidence for an atrial septal defect. Mitral Valve: There is mild to moderate mitral annular calcification. There is trace mitral regurgitation. This is unchanged compared to the previous study. Aortic Valve: The aortic valve is trileaflet. The aortic valve opens well. There is no aortic valve stenosis. There is trace aortic regurgitation. Tricuspid Valve: The tricuspid valve is normal in structure and function. No tricuspid regurgitation. Pulmonary artery pressures cannot be estimated because of the lack of a measurable TR jet velocity. Pulmonic Valve: The pulmonic valve is normal in structure and function. There is no pulmonic valvular regurgitation. There is no significant valvular heart disease. Great Vessels: The aortic root is normal size. The ascending aorta is at the upper limits of normal in size. This is unchanged compared to the previous study. The pulmonary artery is normal size. The IVC is of normal diameter and collapses greater than 50% with a sniff. This suggests a low right atrial pressure of 3 mm Hg. Pericardium/ Pleura There is no pericardial effusion. There is no pleural effusion. MMode/2D Measurements & Calculations LVIDd: 5.4 cmLA dimension: 4.2 cm RA long axis: 5.0 cm Ao root diam: 3.2 cm LVIDs: 4.3 cm Aortic Jxn: 2.6 cm FS: 20.1 % LA A2 area: 21.4 cm RA area: 20.9 cm asc Aorta Diam EPSS: 1.3 cm LA A4 area: 27.4 cm RA vol: 74.8 ml IVSd: 1.2 cm LA length (vol) RA : 35.4 ml/m2 Ao Arch Diam LVPWd: 1.1 cm (Proximal trans.) LA vol: 81.9 ml LA vol index IVC diam: 1.3 cm EDV(MOD-sp2) LV michael. diameter/BSA LV sys. diameter/BSA : 108.3 ml (cm/m^2): 2.5 (cm/m^2): 2.0 Doppler Measurements & Calculations Ao V2 max MV E max rupesh MV E/A: 1.3 PA V2 max: 68.7 cm/sec : 149.6 cm/sec : 101.8 cm/sec Med Peak E' Rupesh PA mean P.1 mmHg Ao max PG MV A max rupesh PA Accel Time: 0.11 sec : 9.0 mmHg : 77.8 cm/sec E/E' med: 19.7 Ao mean PG Lat Peak E' Rupesh : 5.6 mmHg E/E' lat: 16.2 Pulm A Revs Dur MV A dur: 0.13 sec MV dec time Ao V2 mean PA V2 mean Pulm A Revs Dur - MV A : 0.13 sec : 114.4 cm/sec : 49.7 cm/sec Dur: -0.01 msec Ao V2 VTI: 35.5 cmPA pr(Accel) : 31.6 mmHg Reading Physician:11:44 AM [facility] Diagnostic Imaging Department [place], [place] [id number] Patient Name: TIGRE SWEET MR#: [id number] Location: [facility] Ordering Phys: GABRIELA JO-ANN M DO Date of Service: 02/08/16 0522 PROCEDURE: ONE DAY PHARMACOLOGICAL STRESS TEST. Rest and pharmacological stress myocardial perfusion SPECT with gated imaging and ejection fraction RADIOPHARMACEUTICAL: 9.2 mCi Tc-99m tetrofosmin IV at rest and 29.1 mCi Tc-99m tetrofosmin IV at peak effect of pharmacological stress. A [id number] was performed. INDICATIONS: Chest pain, history of coronary artery disease with cardiac catheterization in 2013. TECHNIQUE: Radiopharmaceutical was injected at peak stress test, and also at rest. SPECT images were obtained. SPECT myocardial perfusion images were displayed in short axis, horizontal long axis, and vertical long axis views. Gated images were reviewed using AutoQUANT software. COMPARISON: None. CARDIAC STRESS: Initially the patient attempted exercise stress test. He walked on the Chad protocol for about 4 minutes and 32 seconds, however, felt lightheaded and achieved only 66% of target heart rate. Hence, exercise stress test was converted to pharmacologic perfusion stress test. A pharmacologic stress test was performed under the supervision of attending staff using an infusion of Lexiscan as per protocol. Hemodynamic Data: Overall the patient remained hemodynamically stable. Initial blood pressure 150/92. Maximum blood pressure 194/104. Symptoms: The patient had lightheadedness. It happened during exercise, however, with Lexiscan, no symptoms were reported. Aminophylline: No aminophylline was given. EKG: Baseline rhythm was sinus with evidence of LVH and inferolateral T-wave inversion. During stress, there were no obvious new ischemic changes. There was no significant arrhythmia noted. FINDINGS: Raw Data: There appears to be adequate myocardial uptake. The patient's weight is 214 pounds. Gated Study: Resting and stress LV ejection fraction reported to be 48%. There appears to be mild global hypokinesis. Left Ventricle Function: Left ventricle end diastolic volume 181 mL, suggestive of dilated left ventricle. Myocardial Perfusion Scan: Stress supine, resting supine and stress prone images were compared to each other. It appears that the patient has predominantly-fixed, small-size, mildly-decreased perfusion of the basal inferior wall, extending into the basal inferoseptum. I do not see any obvious reversible ischemia. IMPRESSION: 1. No obvious reversible ischemia. 2. The patient has predominantly-fixed, small-size, mildly-decreased perfusion of the basal inferior wall, extending into the basal inferoseptum. This could be due to persistent tissue attenuation artifact, however, I cannot rule out the possibility of small basal inferior wall and inferoseptal infarction. The left ventricular end diastolic volume is 181 mL, suggestive of dilated left ventricle. Left ventricular ejection fraction reported to be 48% with global hypokinesis. As the patient has a history of excessive alcohol intake, there may be an element of alcohol-induced cardiomyopathy as well. Dictated by: Phill Chance M.D. on 02/08/2016 at 18:00 Transcribed by: LV on 02/09/2016 at 1:18 Approved by: Phill Chance M.D. on 02/10/2016 at 15:00 Brief History 55 yo pleasant male with PMH of CAD s/p AR and cardiac stents, HTN, Hyperlipidemia, CVA, Renal cancer s/p nephrectomy, Brain aneurysm is presenting with chest pain ongoing since the night before. Pain is stabbing in quality, he has experienced many previous episodes and ED visits. He says pain radiate to his back. he has numbness over his arms, legs, and face. DEnies pain in neck, teeth and jaw. Pain intensity does not change with activity. His last stress test was just 3 months ago and says his last catheterization was three years ago. He says his last visit, ED told him his "heart was swollen". He says he is non smoker, denies drug abuse but says he does have alcohol issues. He drinks 4-5 beers a day. In the ED CTA of chest showed no evidence of PE or aortic dissection. In spite of receiving morphine and nitro during the transport and in the ED, his pain has not improved. He is conversing with family and staff w/o exertion, however. His troponons are negative and EKG did not reveal acute changes. VSS. Cardiology was contacted and they recommended observation overnight. Records indicate Left ventricular systolic function is mildly reduced with the ejection fraction estimated to be 45-50% with mild global hypokinesis that is more prominent compared to the previous study, as well as severe hypokinesis in the mid posterior wall with associated echogenicity, suggestive of old scar, mild biatrial enlargement in 02/05/16 echo, stress test from the same date shows predominantly-fixed, small-size, mildly-decreased perfusion of the basal inferior wall, extending into the basal inferoseptum. The left ventricular end diastolic volume is 181 mL, suggestive of dilated left ventricle. Left ventricular ejection fraction reported to be 48% with global hypokinesis. As the patient has a history of excessive alcohol intake, there may be an element of alcohol-induced cardiomyopathy as well. Patient is admitted to the [facility] [place] for 23 hr observation for ACS ruleout. Hospital Course 1. Chest Pain: Unstable Angina. Patient will be given Morphine and PRN oxygen as needed. Will continue home oxygen, lisinopril and metoprolol. He has had a recent stress, thus no new stress will be ordered. Troponins will be trended, AM EKG is ordered. Telemonitoring. Nitro PRN. Plan to consult cardiology if symptoms worsen overnight. Continue heparin drip. AM Lipid panel and A1C are ordered. Cardiology is consulted this AM, they will cath him tomorrow. Continue heparin drip. Troponins were negative overnight, no tele calls. Patient was taken the cardiac cath tech. No acute findings per cardiology reports. We will pursue other etiologies such as cholelithiasis. A1c is 5.7. Lipids lipid panel within normal limits. 2. Extreme dizziness: DDX include stroke, autonomic dysfunction due to alcoholism and cervical radiculopathy. CT Head WO and carotid U/S are ordered: Negative studies as above 3. Alcoholism: CIWA protocol 4. Chronic hypertension: Continue home meds. BP is currently stable with Lisinopril. 5. CAD: Continue home meds Patient disposition: ACS is ruled out. Considering other etiologies for his pain possible discharge tomorrow if no concern for cholelithiasis. Exam Vital Signs (Last) Date Time Temp Pulse Resp B/P Pulse Ox O2 Delivery O2 Flow Rate FiO2 05/03/16 08:00 55 05/03/16 07:57 36.6 12 150/98 98 Room Air 04/30/16 14:41 2 Test 04/30/16 09:38 04/30/16 10:33 05/01/16 00:25 05/01/16 07:21 Hemoglobin A1c 5.6% (4.8-5.6) Magnesium Level 2.3mg/dL (1.6-2.6) Pro-B-Type Natriuretic Peptide 107.2pg/mL (0-210) D-Dimer < 0.5mg/L (<0.50) Troponin T 0.010ug/L (0.0-0.011) Triglycerides Level 61mg/dL (0-149) Cholesterol Level 145mg/dL (100-199) LDL Cholesterol, Calculated 64.800mg/dL (0-99) VLDL Cholesterol 12.200mg/dL HDL Cholesterol 68mg/dL (>39) Cholesterol/HDL Ratio 2.13 (0.0-4.4) Test 05/03/16 08:01 White Blood Count 7.1th/mm3 (3.8-10.1) Red Blood Count 5.46mil/mm3 (4.40-5.80) Hemoglobin 17.2g/dL (13.8-17.2) Hematocrit 47.8% (41.0-50.0) Mean Corpuscular Volume 87.5fL (81-100) Mean Corpuscular Hemoglobin 31.5pg (27.0-35.0) Mean Corpuscular Hemoglobin Concent 36.0% (32.0-37.0) Red Cell Distribution Width 13.3% (12.3-15.4) Platelet Count 214bil/L (150-400) Neutrophils (%) (Auto) 74.1% (40-74) Lymphocytes (%) (Auto) 17.2% (14-46) Monocytes (%) (Auto) 7.0% (4-12) Eosinophils (%) (Auto) 1.3% (0-5) Basophils (%) (Auto) 0.1% (0-3) Activated Partial Thromboplast Time 28.2sec (22.8-33.0) Sodium Level 136mEq/L (134-144) Potassium Level 4.5mEq/L (3.5-5.2) Chloride Level 99mEq/L (97-108) Carbon Dioxide Level 21mmol/L (18-29) Blood Urea Nitrogen 17mg/dL (6-24) Creatinine 0.79mg/dL (0.76-1.27) Estimat Glomerular Filtration Rate 107mL/min (>59) Glucose Level 113mg/dL (60-99) Calcium Level 9.2mg/dL (8.5-10.1) Total Bilirubin 0.7mg/dL (0.0-1.2) Aspartate Amino Transf (AST/SGOT) 25U/L (0-50) Alanine Aminotransferase (ALT/SGPT) 22U/L (0-44) Alkaline Phosphatase 73U/L (25-150) Total Protein 6.5g/dL (6.4-8.4) Albumin 4.5g/dL (3.4-5.0) Discharge Medications Discharge Medications Amlodipine (Amlodipine) 5 Mg Tablet 5 MG PO DAILY (Reported) Atorvastatin (Lipitor) 80 Mg Tablet 80 MG PO DAILY Prescribed by: CHOLO SEXTON MD Clopidogrel (Clopidogrel) 75 Mg Tablet 75 MG PO DAILY Prescribed by: JO-ANN OCHOA DO Hydrochlorothiazide (Hydrochlorothiazide) 25 Mg Tablet 25 MG PO DAILY (Reported ) Lisinopril (Lisinopril) 40 Mg Tablet 40 MG PO BID Prescribed by: KEVIN MAHMOOD DO Metoprolol Succinate ER (Metoprolol Succinate ER) 25 Mg Tab.er.24h 25 MG PO DAILY Prescribed by: KEVIN MAHMOOD DO As needed Cyclobenzaprine (Cyclobenzaprine) 10 Mg Tablet 10 MG PO BID PRN PRN For Spasm Prescribed by: KEVIN MAHMOOD DO Nitroglycerin SL (Nitrostat) 0.4 Mg Tab.subl 0.4 MG SL Q5MIN PRN PRN For Chest Pain (Reported) Additional med instructions Please hold Aspirin until you see your brickmason helper to discuss the need for both plavix and Aspirin. Followup Plan Follow-up plan Please see your PCP in 2 weeks. Please f/u with your brickmason helper in one week. Discharge Diet: Heart Healthy Discharge Activity: No restrictions Patient Instructions Please hold aspirin till you see your brickmason helper to discuss the need for dual therapy. Kevin Mahmood DO May 03, 2016 09:13
[2016-05-03] MEDS: Multivit-Miner-Folic Acid-Iron Tablet PO SCH (09:19)
--- NOTE | 2016-05-03 12:30 | NUR ---
Delayed discharge/new symptoms Discharged delayed due to new symptoms. Pt is now c/o a PERDOMO and dizziness. On/off blurry vision and feeling more lethargic. Pt was given APAP for PERDOMO and it is starting to decrease. Dizziness has subsided since it started and pt's vision in not currently blurry. BP is a little elevated. Pt is A&Ox3, no motor deficits noted. Pt does not appear lethargic. Hospitalist notified. Discharge will be delayed and the neurology department will be consulted. Will continue to monitor.
[2016-05-03] MEDS ORDERED: LISI40TA PO (12:31)
[2016-05-03] MEDS ORDERED: METO25TA99 PO (12:34)
--- NOTE | 2016-05-03 14:38 | NUR ---
Social Work Note - Readiness for Discharge: D/A: The Pt is a 55 y/o male that is now on day 3 of hospitalization under observation status for chest pain R/O ACS. SW met with the Pt at bedside to discuss alcohol use. The Pt reports that he began drinking approximately two years ago when his mother passed, whom he was very close to. He stated that he has cut down considerably with his alcohol use from an 18 pack to a six pack a day and is planning to reduce his consumption even more in the future. He reports that he has lost at least 27lbs since reducing his alcohol intake. The Pt denies the need for additional assistance at this time. Pt was agreeable to explore Chemical Dependency resource list, list given and discussed. Pt agreeable to follow up with a Chemical Dependency agency in the future, if needed. SW also discussed the possibility of mental health concerns and resources, Pt denied the need for these services. He reports that he is able to reach out to his siblings as needed for support. Pt also given Crisis Line telephone number to call if needed. The Pt was scheduled for discharge today, discharge delayed due to new symptoms of headache, dizziness, blurred vision, and feeling lethargic. Neurology to be consulted. SW will continue to follow. P: The Pt scheduled to be discharged home today with family providing POV transportation, discharged delayed due to new symptoms. Neurology to be consulted. Alcohol use explored, Chemical Dependency resource list given and explained. SW will continue to follow. Zuri Rosario, [employer] Owner/Operator [employer]LL[employer] Moreno
--- NOTE | 2016-05-03 17:35 | NUR ---
Discharge Pt discharged home. Pt does not have any dizzines, PERDOMO is gone, denies blurred vision, and pt is not lethargic. Musculoskeletal chest pain is at /10 and vitals are stable. Pt requested to wait in lobby for his ride. Pt provided with information on follow up (appointments made), signs to watch for, medication information, and diagnosis information. Pt's belongings taken with him. Addendum: 05/03/16 at 1746 by ADRIANA GARRETT RN Pt given note to return to work. New metoprolol dose faxed to the pharmacy, per hospitalist.
--- NOTE | 2016-05-03 21:15 | PCM.DC.MED ---
Discharge Summary Date of Service May 03, 2016 Dates of Hospitalization Date of Hospital Admission Apr 30, 2016 at 13:59 Date of Discharge: May 03, 2016 Providers: Admitting Physician: Kevin Mahmood DO Primary Care Physician: Iggy Hdz MD Attending Physician: Kevin Mahmood DO Diagnosis at Time of Discharge Diagnosis at Time of Discharge CAD s/p LAD stent ACS ruled out, CHF, HTN, Hyperlipidemia, CVA, Brain aneurysm, Pectoral muscle spasm Consultations Cardiology Procedures XRay, CTs & MRIs [facility] [place] [address] Patient Name: TIGRE SWEET MR#: [id number] [place] [facility] [place]ing Phys: Kevin Mahmood DO Date of Service: 04/30/16 174 PROCEDURE: US BILATERAL DUPLEX DOPPLER IMAGING OF THE CAROTIDS ([id number]) INDICATIONS: Neurological symptoms. dizziness TECHNIQUE: Color and pulse Doppler interrogation was performed of both carotid systems, with image documentation and velocity measurements. COMPARISON: None. FINDINGS: All stenosis calculations are based on NASCET criteria. Right side: Brachial blood pressure: 159/90 mm Hg. Common Carotid Artery(Distal) PSV: 101.20 cm/s Internal Carotid Artery PSV- Proximal: 97.50 cm/s Mid-lon.20 cm/s Distal: 64.80 cm/s EDV - Proximal: 18.50 cm/s Mid-lon.60 cm/s Distal: 29.30 cm/s External Carotid Artery(Proximal) PSV: 244.30 cm/s ICA/CCA PSV ratio: 0.96 Renteria scale imaging description: Scattered calcified plaque at the bifurcation Percent internal carotid artery stenosis: Less than 50%. Vertebral artery: Flow direction is antegrade. Left side: Brachial blood pressure: 155/81 mm Hg. Common Carotid Artery(Distal) PSV: 84.50 cm/s Internal Carotid Artery PSV - Proximal: 76.10 cm/s Mid-lon.30 cm/s Distal: 42.80 cm/s EDV - Proximal: 22.60 cm/s Mid-lon.10 cm/s Distal: 19.70 cm/s External Carotid Artery(Proximal) PSV: 126.10 cm/s ICA/CCA PSV ratio: 1.31 Renteria scale imaging description: Mild plaque at the bifurcation Percent internal carotid artery stenosis: Less than 50%. Vertebral artery: Flow direction is antegrade. IMPRESSION: Bilateral less than 50% ICA stenoses Dictated by: Aj Montoya M.D. on 04/30/2016 at 19:40 Approved by: Aj Montoya M.D. on 04/30/2016 at 19:40 [facility] Diagnostic Imaging Department [place], [place] [id number] Patient Name: TIGRE SWEET MR#: [id number] [place] [facility] [place]ing Phys: Kevin Mahmood DO Date of Service: 04/30/16 1748 PROCEDURE: CT BRAIN WITHOUT CONTRAST ([id number]) INDICATIONS: dizziness TECHNIQUE: Noncontrast 4.5 mm thick angled axial sections acquired from the foramen magnum to the vertex, with coronal reformats. COMPARISON: [facility], CT, CT BRAIN WO CON, 02/05/2015, 1:32. FINDINGS: Image quality: Excellent. CSF spaces: Basal cisterns are patent. No extra-axial fluid collections. The ventricles are symmetric in size and shape. Brain: No intracranial bleeds or masses. There is cerebral volume loss for age , with resultant ventricular and sulcal prominence. There are periventricular and deep white matter chronic small vessel ischemic changes. There is intracranial internal carotid artery atherosclerosis. Skull and face: Calvarium and visualized facial bones appear intact, without suspicious lesions. Sinuses: Left maxillary mucous retention cyst or polyp IMPRESSION: No acute intracranial process Dictated by: Aj Montoya M.D. on 04/30/2016 at 20:02 Approved by: Aj Montoya M.D. on 04/30/2016 at 20:04 [facility] Diagnostic Imaging Department [place], [place] [id number] Patient Name: TIGRE SWEET MR#: [id number] Location: [facility] [place] Ordering Phys: Singh Chen DO Date of Service: 04/30/16 1158 PROCEDURE: CT ANG CHEST/ABD W/WO CONTRAST ([id number]) INDICATIONS: chest pain radiating to back TECHNIQUE: Precontrast 5 mm thick sections acquired from the lung apices to the iliac crests. After the administration of intravenous contrast, 3 mm thick sections again acquired from the lung apices to the iliac crests. 3-dimensional maximum intensity projection (MIP) oblique sagittal and coronal reformats were then acquired, and/or 3-dimensional volume rendering reformats. For radiation dose reduction, the following was used: automated exposure control. COMPARISON: [facility], CT, CHEST ANGIO-PE, 09/01/2008, 7:43. FINDINGS: Image quality: Excellent. AORTA: Intramural hematoma: Absent Maximum hematoma thickness: Not applicable. Focal contrast enhancement: Intramural blood pool (< 2 mm neck or imperceptible communication with aortic lumen): Absent. Ulcer-like projection (broad communication with aortic lumen > 3 mm): Absent. Dissection: Absent. [place] classification: Not applicable. Maximum aortic diameter: 3.5 cm. [If Martin A dissection, > 5.0 cm has a poorer prognosis. If [place] B dissection, > 4.0 cm has a poorer prognosis.] Periaortic hematoma: Absent. CHEST: Lungs and pleura: No acute airspace opacities. Small nodules noted in the lungs bilaterally which are not significantly changed compared to prior examination obtained 09/01/2008. No pleural effusions or pneumothorax. Central and peripheral airways are patent and normal in caliber. Mediastinum: Heart size is normal. Atherosclerotic ossifications noted in the aorta and the coronary vasculature. Endovascular stents noted in the coronary vasculature; please correlate with clinical history. No pericardial effusion. No mediastinal or hilar adenopathy by size criteria. Central pulmonary arteries are normal in size. Esophagus is normal in caliber. No hiatal hernias. Bones and chest wall: No axillary adenopathy by size criteria. Thyroid gland is within normal limits. No suspicious bony lesions. No vertebral body compression fractures. ABDOMEN: Vasculature: Celiac trunk and mesenteric arteries are patent. Renal arteries are also patent. Solid organs: Liver and spleen are normal in size. Gallbladder is within normal limits. Biliary system is non dilated. Pancreas enhances normally. No adrenal nodules. Both kidneys are normal in size and enhancement, without hydronephrosis. Right renal cyst is noted. Peripheral calcifications are noted in the left kidney may represent sequela of prior infection or infarction. Peritoneum and bowel: No free fluid or air. Bowel loops are normal in caliber and wall thickness. Nodes and vessels: No retroperitoneal or mesenteric adenopathy by size criteria. Inferior vena cava is normal in morphology. Bones: No suspicious bony lesions. No vertebral body compression fractures. Fixation hardware noted in the lower cervical spine. Miscellaneous: Small fat-containing umbilical ventral hernia is noted.. IMPRESSION: 1. No evidence of aortic dissection or aneurysm. 2. Atherosclerosis including the coronary vasculature. 3. Multiple, small, bilateral lung nodules stable compared to 09/01/2008 likely represent sequela prior granulomatous disease. 4. Small umbilical ventral hernia. Dictated by: Stephanie Smith MD, PhD on 04/30/2016 at 12:33 Approved by: Stephanie Smith MD, PhD on 04/30/2016 at 12:51 CXR 04/30/16 NAD Cardiac Echo Impression [facility] Diagnostic Imaging Department [place], [place] [id number] Patient Name: TIGRE SWEET MR#: [id number] Location: [facility] Ordering Phys: Ludmila Travis DO Date of Service: 02/09/[address] [place] [id number] Echocardiogram Report Name: TIGRE SWEET MStudy Dereck e: 02/09/2016 Height: 68 in Hospital Exam Location: [facility] Weight: 217 lb Gender: Male BSA: 2.1 m2 : 1960 Age: 55 yrs BP: 135/91 mmHg Reason For Study: CHEST PAIN Ordering Physician: Performed By: Zeeshan Arauz Interpretation Summary Left ventricular systolic function is mildly reduced with the ejection fraction estimated to be 45-50% with mild global hypokinesis that is more prominent compared to the previous study, as well as severe hypokinesis in the mid posterior wall with associated echogenicity, suggestive of old scar, that is unchanged compared to the previous study. There is mild concentric left ventricular hypertrophy with diastolic parameters suggesting a pseudonormalization pattern, consistent with elevated filling pressures but this is unchanged compared to the previous study. The right ventricle is normal in size and function and appears unchanged compared to the previous study. Pulmonary artery pressures cannot be estimated because of the lack of a measurable TR jet velocity but the IVC suggests a low right atrial pressure of 3 mm Hg. There is mild biatrial enlargement. The left atrium has mildly decreased in size since the prior echo exam while the right atrium has mildly increased in size. There is no significant valvular heart disease. The ascending aorta is at the upper limits of normal in size but is unchanged compared to the previous study. Procedure: A two-dimensional transthoracic echocardiogram with color flow and Doppler was performed. The study quality was technically adequate. Comparison is made with the echocardiogram of 02/05/15. The patient was in sinus bradycardia with heart rates between 51-59 bpm during the exam. This is considerably slower compared to the previous study. Left Ventricle: The left ventricle is normal in size. There is mild concentric left ventricular hypertrophy. There is no thrombus. Left ventricular systolic function is mildly reduced. The ejection fraction is estimated to be 45-50%. There is mild global hypokinesis of the left ventricle. This is more prominent compared to the previous study. There is severe hypokinesis in the mid posterior wall with associated echogenicity, suggestive of old scar. This is unchanged compared to the previous study. Assessment of diastolic parameters suggests a pseudonormalization pattern, consistent with elevated filling pressures. This is unchanged compared to the previous study. Right Ventricle: The right ventricle is normal in size and function. This is unchanged compared to the previous study. Atria: There is mild biatrial enlargement. The left atrium has mildly decreased in size since the prior echo exam. The right atrium has mildly increased in size since the prior echo exam. The interatrial septum is intact with no evidence for an atrial septal defect. Mitral Valve: There is mild to moderate mitral annular calcification. There is trace mitral regurgitation. This is unchanged compared to the previous study. Aortic Valve: The aortic valve is trileaflet. The aortic valve opens well. There is no aortic valve stenosis. There is trace aortic regurgitation. Tricuspid Valve: The tricuspid valve is normal in structure and function. No tricuspid regurgitation. Pulmonary artery pressures cannot be estimated because of the lack of a measurable TR jet velocity. Pulmonic Valve: The pulmonic valve is normal in structure and function. There is no pulmonic valvular regurgitation. There is no significant valvular heart disease. Great Vessels: The aortic root is normal size. The ascending aorta is at the upper limits of normal in size. This is unchanged compared to the previous study. The pulmonary artery is normal size. The IVC is of normal diameter and collapses greater than 50% with a sniff. This suggests a low right atrial pressure of 3 mm Hg. Pericardium/ Pleura There is no pericardial effusion. There is no pleural effusion. MMode/2D Measurements & Calculations LVIDd: 5.4 cmLA dimension: 4.2 cm RA long axis: 5.0 cm Ao root diam: 3.2 cm LVIDs: 4.3 cm Aortic Jxn: 2.6 cm FS: 20.1 % LA A2 area: 21.4 cm RA area: 20.9 cm asc Aorta Diam EPSS: 1.3 cm LA A4 area: 27.4 cm RA vol: 74.8 ml IVSd: 1.2 cm LA length (vol) RA : 35.4 ml/m2 Ao Arch Diam LVPWd: 1.1 cm (Proximal trans.) LA vol: 81.9 ml LA vol index IVC diam: 1.3 cm EDV(MOD-sp2) LV michael. diameter/BSA LV sys. diameter/BSA : 108.3 ml (cm/m^2): 2.5 (cm/m^2): 2.0 Doppler Measurements & Calculations Ao V2 max MV E max rupesh MV E/A: 1.3 PA V2 max: 68.7 cm/sec : 149.6 cm/sec : 101.8 cm/sec Med Peak E' Rupesh PA mean P.1 mmHg Ao max PG MV A max rupesh PA Accel Time: 0.11 sec : 9.0 mmHg : 77.8 cm/sec E/E' med: 19.7 Ao mean PG Lat Peak E' Rupesh : 5.6 mmHg E/E' lat: 16.2 Pulm A Revs Dur MV A dur: 0.13 sec MV dec time Ao V2 mean PA V2 mean Pulm A Revs Dur - MV A : 0.13 sec : 114.4 cm/sec : 49.7 cm/sec Dur: -0.01 msec Ao V2 VTI: 35.5 cmPA pr(Accel) : 31.6 mmHg Reading Physician:11:44 AM [facility] [place] [address] Patient Name: TIGRE SWEET MR#: [id number] Location: [facility] Ordering Phys: JO-ANN OCHOA DO Date of Service: 02/08/16 0529 PROCEDURE: ONE DAY PHARMACOLOGICAL STRESS TEST. Rest and pharmacological stress myocardial perfusion SPECT with gated imaging and ejection fraction RADIOPHARMACEUTICAL: 9.2 mCi Tc-99m tetrofosmin IV at rest and 29.1 mCi Tc-99m tetrofosmin IV at peak effect of pharmacological stress. A [id number] was performed. INDICATIONS: Chest pain, history of coronary artery disease with cardiac catheterization in 2013. TECHNIQUE: Radiopharmaceutical was injected at peak stress test, and also at rest. SPECT images were obtained. SPECT myocardial perfusion images were displayed in short axis, horizontal long axis, and vertical long axis views. Gated images were reviewed using AutoQUANT software. COMPARISON: None. CARDIAC STRESS: Initially the patient attempted exercise stress test. He walked on the Chad protocol for about 4 minutes and 32 seconds, however, felt lightheaded and achieved only 66% of target heart rate. Hence, exercise stress test was converted to pharmacologic perfusion stress test. A pharmacologic stress test was performed under the supervision of attending staff using an infusion of Lexiscan as per protocol. Hemodynamic Data: Overall the patient remained hemodynamically stable. Initial blood pressure 150/92. Maximum blood pressure 194/104. Symptoms: The patient had lightheadedness. It happened during exercise, however, with Lexiscan, no symptoms were reported. Aminophylline: No aminophylline was given. EKG: Baseline rhythm was sinus with evidence of LVH and inferolateral T-wave inversion. During stress, there were no obvious new ischemic changes. There was no significant arrhythmia noted. FINDINGS: Raw Data: There appears to be adequate myocardial uptake. The patient's weight is 214 pounds. Gated Study: Resting and stress LV ejection fraction reported to be 48%. There appears to be mild global hypokinesis. Left Ventricle Function: Left ventricle end diastolic volume 181 mL, suggestive of dilated left ventricle. Myocardial Perfusion Scan: Stress supine, resting supine and stress prone images were compared to each other. It appears that the patient has predominantly-fixed, small-size, mildly-decreased perfusion of the basal inferior wall, extending into the basal inferoseptum. I do not see any obvious reversible ischemia. IMPRESSION: 1. No obvious reversible ischemia. 2. The patient has predominantly-fixed, small-size, mildly-decreased perfusion of the basal inferior wall, extending into the basal inferoseptum. This could be due to persistent tissue attenuation artifact, however, I cannot rule out the possibility of small basal inferior wall and inferoseptal infarction. The left ventricular end diastolic volume is 181 mL, suggestive of dilated left ventricle. Left ventricular ejection fraction reported to be 48% with global hypokinesis. As the patient has a history of excessive alcohol intake, there may be an element of alcohol-induced cardiomyopathy as well. Dictated by: Phill Chance M.D. on 02/08/2016 at 18:00 Transcribed by: LV on 02/09/2016 at 1:18 Approved by: Phill Chance M.D. on 02/10/2016 at 15:00 Brief History 55 yo pleasant male with PMH of CAD s/p HI and cardiac stents, HTN, Hyperlipidemia, CVA, Renal cancer s/p nephrectomy, Brain aneurysm is presenting with chest pain ongoing since the night before. Pain is stabbing in quality, he has experienced many previous episodes and ED visits. He says pain radiate to his back. he has numbness over his arms, legs, and face. DEnies pain in neck, teeth and jaw. Pain intensity does not change with activity. His last stress test was just 3 months ago and says his last catheterization was three years ago. He says his last visit, ED told him his "heart was swollen". He says he is non smoker, denies drug abuse but says he does have alcohol issues. He drinks 4-5 beers a day. In the ED CTA of chest showed no evidence of PE or aortic dissection. In spite of receiving morphine and nitro during the transport and in the ED, his pain has not improved. He is conversing with family and staff w/o exertion, however. His troponons are negative and EKG did not reveal acute changes. VSS. Cardiology was contacted and they recommended observation overnight. Records indicate Left ventricular systolic function is mildly reduced with the ejection fraction estimated to be 45-50% with mild global hypokinesis that is more prominent compared to the previous study, as well as severe hypokinesis in the mid posterior wall with associated echogenicity, suggestive of old scar, mild biatrial enlargement in 02/05/16 echo, stress test from the same date shows predominantly-fixed, small-size, mildly-decreased perfusion of the basal inferior wall, extending into the basal inferoseptum. The left ventricular end diastolic volume is 181 mL, suggestive of dilated left ventricle. Left ventricular ejection fraction reported to be 48% with global hypokinesis. As the patient has a history of excessive alcohol intake, there may be an element of alcohol-induced cardiomyopathy as well. Patient is admitted to the [facility] [place] for 23 hr observation for ACS ruleout. Hospital Course 1. Chest Pain: Thought to be Unstable Angina. Patient was given Morphine and PRN oxygen as needed. His home medications lisinopril was continued and metoprolol was held during part of his stay due to concern for bradycardia. He has had a recent stress, thus no new stress was ordered initially. He was kept on heparin drip and telemonitoring. This troponins were trended. ACS was ruled out next morning after admission. However patient kept complaining of pain over his chest, cardiology was counseled and they saw the patient patient underwent a cath on 05/02/16. No significant changes from his previous Found. We investigated musculoskeletal pain as a cause for his chest pain. He did have pain from spasm or pectoralis muscle and was given Flexeril. Patient is asked to follow up with cardiology as outpatient. A1c is 5.7. Lipids lipid panel within normal limits. 2. Extreme dizziness: DDX include stroke, autonomic dysfunction due to alcoholism and cervical radiculopathy. CT Head WO and carotid U/S are ordered: Negative studies as above. On the day of discharge patient is wanting to go home and he is ambulating in the hallways without pitting symptoms. 3. Alcoholism: CIWA protocol was ordered but patient did not trigger the scale 4. Chronic hypertension: Continue home meds. BP is currently stable with Lisinopril. His lisinopril is increased at home going due to elevated blood pressures, metoprolol dose is decreased due to bradycardia. 5. CAD: Continue home meds Exam Vital Signs (Last) Date Time Temp Pulse Resp B/P Pulse Ox O2 Delivery O2 Flow Rate FiO2 05/03/16 15:56 37.1 69 139/92 96 Room Air 05/03/16 07:57 12 04/30/16 14:41 2 Exam General: No acute distress sitting up in bed HEENT: Normocephalic atraumatic Heart regular rate and rhythm no S3-S4 murmurs appreciated Lungs clear to auscultation no crackles or wheezes Abdomen: Negative for abdominal pain to deep palpation, normal bowel sounds musculoskeletal: Restricted range of motion in side bending and trunk rotation reproducible pectoralis muscle pain. Pain is reproducible with arm abduction Neurological: No focal deficits Psych negative for anxiety Test 04/30/16 09:38 04/30/16 10:33 05/01/16 00:25 05/01/16 07:21 Hemoglobin A1c 5.6% (4.8-5.6) Magnesium Level 2.3mg/dL (1.6-2.6) Pro-B-Type Natriuretic Peptide 107.2pg/mL (0-210) D-Dimer < 0.5mg/L (<0.50) Troponin T 0.010ug/L (0.0-0.011) Triglycerides Level 61mg/dL (0-149) Cholesterol Level 145mg/dL (100-199) LDL Cholesterol, Calculated 64.800mg/dL (0-99) VLDL Cholesterol 12.200mg/dL HDL Cholesterol 68mg/dL (>39) Cholesterol/HDL Ratio 2.13 (0.0-4.4) Test 05/03/16 08:01 White Blood Count 7.1th/mm3 (3.8-10.1) Red Blood Count 5.46mil/mm3 (4.40-5.80) Hemoglobin 17.2g/dL (13.8-17.2) Hematocrit 47.8% (41.0-50.0) Mean Corpuscular Volume 87.5fL (81-100) Mean Corpuscular Hemoglobin 31.5pg (27.0-35.0) Mean Corpuscular Hemoglobin Concent 36.0% (32.0-37.0) Red Cell Distribution Width 13.3% (12.3-15.4) Platelet Count 214bil/L (150-400) Neutrophils (%) (Auto) 74.1% (40-74) Lymphocytes (%) (Auto) 17.2% (14-46) Monocytes (%) (Auto) 7.0% (4-12) Eosinophils (%) (Auto) 1.3% (0-5) Basophils (%) (Auto) 0.1% (0-3) Activated Partial Thromboplast Time 28.2sec (22.8-33.0) Sodium Level 136mEq/L (134-144) Potassium Level 4.5mEq/L (3.5-5.2) Chloride Level 99mEq/L (97-108) Carbon Dioxide Level 21mmol/L (18-29) Blood Urea Nitrogen 17mg/dL (6-24) Creatinine 0.79mg/dL (0.76-1.27) Estimat Glomerular Filtration Rate 107mL/min (>59) Glucose Level 113mg/dL (60-99) Calcium Level 9.2mg/dL (8.5-10.1) Total Bilirubin 0.7mg/dL (0.0-1.2) Aspartate Amino Transf (AST/SGOT) 25U/L (0-50) Alanine Aminotransferase (ALT/SGPT) 22U/L (0-44) Alkaline Phosphatase 73U/L (25-150) Total Protein 6.5g/dL (6.4-8.4) Albumin 4.5g/dL (3.4-5.0) Discharge Medications Discharge Medications Amlodipine (Amlodipine) 5 Mg Tablet 5 MG PO DAILY (Reported) Atorvastatin (Lipitor) 80 Mg Tablet 80 MG PO DAILY Prescribed by: CHOLO SEXTON MD Clopidogrel (Clopidogrel) 75 Mg Tablet 75 MG PO DAILY Prescribed by: JO-ANN M BEUNING, DO Hydrochlorothiazide (Hydrochlorothiazide) 25 Mg Tablet 25 MG PO DAILY (Reported ) Lisinopril (Lisinopril) 40 Mg Tablet 40 MG PO BID Prescribed by: KEVIN MAHMOOD DO Metoprolol Succinate ER (Metoprolol Succinate ER) 25 Mg Tab.er.24h 25 MG PO DAILY Prescribed by: KEVIN MAHMOOD DO As needed Cyclobenzaprine (Cyclobenzaprine) 10 Mg Tablet 10 MG PO BID PRN PRN For Spasm Prescribed by: KEVIN MAHMOOD DO Nitroglycerin SL (Nitrostat) 0.4 Mg Tab.subl 0.4 MG SL Q5MIN PRN PRN For Chest Pain (Reported) Additional med instructions Please hold Aspirin until you see your podiatric assistant to discuss the need for both plavix and Aspirin. Followup Plan Follow-up plan Please see your PCP in 2 weeks. Please f/u with your podiatric assistant in one week. Discharge Diet: Heart Healthy Discharge Activity: No restrictions Patient Instructions Please hold aspirin till you see your podiatric assistant to discuss the need for dual therapy. Kevin Mahmood DO May 03, 2016 21:15
== END 2016-05-03 17:35 | disposition home or self-care (01) ==
LOC: EDUNIT# 09:30 → SED 09:30 → EDBD 09:30 → MOC 13:59
PROVIDERS: ADMIT Family Medicine; ATTEND Family Medicine
DX: R07.9 Chest pain, unspecified (principal); I25.10 Atherosclerotic heart disease of native coronary artery without angina pectoris; M62.838 Other muscle spasm; I10 Essential (primary) hypertension; E78.5 Hyperlipidemia, unspecified; F10.20 Alcohol dependence, uncomplicated; Z95.5 Presence of coronary angioplasty implant and graft; I25.2 Old myocardial infarction; Z86.73 Personal history of transient ischemic attack (TIA), and cerebral infarction without residual deficits; Z90.5 Acquired absence of kidney; Z85.528 Personal history of other malignant neoplasm of kidney; R42 Dizziness and giddiness; E78.00 Pure hypercholesterolemia, unspecified; Z79.02 Long term (current) use of antithrombotics/antiplatelets; F41.9 Anxiety disorder, unspecified
CPT/HCPCS: 36415; 70450; 71010; 71275; 74175; 80048; 80053; 80061; 83036; 83735; 83880; 84484; 85014; 85018; 85025; 85379; 85730; 93005; 93458; 93880; 96365; 96375; 96376; 99152; 99153; 99285; C1769; C1887; G0378; J1644; J2270; J2405; J3475; J7030; Q9967

== ENCOUNTER 2016-05-12 17:06 | Observation (INO) | payer OTHER ==
[~2016-05-12] VITALS: Ht 172.7 cm; Wt 94.5 kg
[~2016-05-12 17:06] MED LIST changes: +AMLO5TAB2 PO; -ASPI81TA3 PO; +CYCL10TA9 PO; -HYDR12.55 PO; +HYDR25TA4 PO; -METO-272 PO; +METO25TA99 PO; -PANT20T PO
[2016-05-12 17:24] VITALS: BP 155/84; PULSE 78; RESP 16; O2SAT 94
--- NOTE | 2016-05-12 17:32 | ED.REPORT ---
HPI-Chest Pain 40 and Over Date of Service May 12, 2016 ED Provider: Singh Chen DO Pt is a 55 y/o male w/ a hx of CAD with CO s/p stenting, HTN, hyperlipidemia, brain aneurysm, presenting to the ED via EMS c/o CP onset 30 minutes ago. He also reports vague associated symptoms such as spinning-sensation dizziness, nausea, lightheadedness, increased lower extremity edema, diffuse paresthesias about the entire body, PERDOMO, generalized weakness. Per pt's friend, the pt's blood pressure was elevated at the onset of his symptoms. The pt states he had 3 beers today. He denies focal weakness, fever, chills, cough, SOB, abdominal pain, vomiting, or diarrhea. He was recently admitted between April 30- of this year for chest pain at which time coronary angiogram was negative. ACS was ruled out. Nursing Notes Stated Complaint: CHEST PAIN Chief Complaint: Chest Pain-Non Cardiac Nature Nursing Notes Reviewed: Yes Allergies: Coded Allergies: No Known Allergies (Verified , 04/30/16) Scheduled Amlodipine (Amlodipine) 5 Mg Tablet 5 MG PO DAILY Atorvastatin (Lipitor) 80 Mg Tablet 80 MG PO DAILY Clopidogrel (Clopidogrel) 75 Mg Tablet 75 MG PO DAILY Hydrochlorothiazide (Hydrochlorothiazide) 25 Mg Tablet 25 MG PO DAILY Lisinopril (Lisinopril) 40 Mg Tablet 40 MG PO BID Metoprolol Succinate ER (Metoprolol Succinate ER) 25 Mg Tab.er.24h 25 MG PO DAILY Scheduled PRN Cyclobenzaprine (Cyclobenzaprine) 10 Mg Tablet 10 MG PO BID PRN PRN For Spasm Nitroglycerin SL (Nitrostat) 0.4 Mg Tab.subl 0.4 MG SL Q5MIN PRN PRN For Chest Pain General Time Seen by MD: 17:29 Chief Complaint Chest pain Hx Obtained From: Patient, EMS Arrived By: Ambulance Sudden in Onset?: Yes Onset Occurred: 16 - 30 minutes ago Symptom Duration: Since onset Location: : Substernal Quality: Painful Severity: Current: Mild Severity: Maximum: Moderate Recent Healthcare: Recent doctor visit, Recent hospitalization, Recent testing , Previous diagnosis, Prior workup Similar Sx Previous: Yes Past Medical History Past Medical History Notes: PCP: Dr. Hdz Past Medical History 1. Coronary artery disease 2. Hypertension. 3. Hypercholesterolemia. 4. Pt reports brain aneurysm. 5. Renal cancer with partial nephrectomy 6. pneumonia 7. CHF 8. Hx CVA Past Surgical History C-spine multilevel laminectomy partial nephrectomy appendectomy tonsillectomy multiple cardiac Stents Family History Noncontributory Smoking History Never Smoker Social History Alcohol Use: "Social" Drug Use: Denies drug use Other Social History: Good social support, Local resident Occupation The patient works in a casino in [place] Ambulatory Status Independent Review of Systems Constitutional: Reports: Weakness - generalized, Denies: Chills, Fever Respiratory: Denies: Non-productive cough, Shortness of breath Cardiovascular: Reports: Chest pain, Edema, Denies: Dyspnea on exertion GI: Reports: Nausea, Denies: Abdominal pain, Diarrhea, Vomiting Neurologic: Reports: Dizziness, Headache, Lightheaded, Numbness, Spinning sensation, Denies: Focal weakness Complete sys rev & neg: except as marked. Physical Exam Initial Vital Signs Vital Signs (First) Date Time Temp Pulse Resp B/P Pulse Ox O2 Delivery O2 Flow Rate FiO2 05/12/16 17:24 36.5 78 16 155/84 94 Room Air Initial VS: Reviewed, Vital signs abnormal ENT: Mucous membranes moist, Conjunctiva normal, No scleral icterus Neck: Supple, Full range of motion Extremities: Vascular intact, Neuro intact, No swelling, No tenderness Skin: Warm, Dry, No cyanosis Psychiatric: Mood/affect normal, Behavior normal, Normal thought content General/Constitutional: Awake, Alert, Cooperative, Not toxic appearing Somnolent Respiratory / Chest: Atraumatic, Breath sounds NL, Breath sounds = bilat, No respiratory distress, No rales, No rhonchi, No wheezing, No retractions, No stridor, No chest tenderness, No chest wall deformity, No crepitus Cardiovascular: Heart rate NL, Regular rhythm, Heart sounds NL, No gallop, No murmurs, No rubs, Cap refill not delayed, Peripheral circulation NL Abdomen: Atraumatic, Soft, Non-tender, No guarding, No rebound Neurologic: Oriented X3, Speech NL, No motor deficits Vague sensory paresthesias diffusely over whole body NIH score = 0 Head / Eyes: Atraumatic, Normocephalic Bilateral horizontal nystagmus Interpretation & Diagnostics Lab Results Interpretation Result Diagram: 05/12/16 1731 05/12/16 1731 Test 3/19/17 17:31 White Blood Count 8.1th/mm3 (3.8-10.1) Red Blood Count 5.08mil/mm3 (4.40-5.80) Hemoglobin 15.9g/dL (13.8-17.2) Hematocrit 44.4% (41.0-50.0) Mean Corpuscular Volume 87.4fL (81-100) Mean Corpuscular Hemoglobin 31.3pg (27.0-35.0) Mean Corpuscular Hemoglobin Concent 35.8% (32.0-37.0) Red Cell Distribution Width 13.3% (12.3-15.4) Platelet Count 238bil/L (150-400) Neutrophils (%) (Auto) 71.6% (40-74) Lymphocytes (%) (Auto) 22.7% (14-46) Monocytes (%) (Auto) 4.9% (4-12) Eosinophils (%) (Auto) 0.5% (0-5) Basophils (%) (Auto) 0.2% (0-3) Sodium Level 137mEq/L (134-144) Potassium Level 3.7mEq/L (3.5-5.2) Chloride Level 98mEq/L (97-108) Carbon Dioxide Level 21mmol/L (18-29) Blood Urea Nitrogen 15mg/dL (6-24) Creatinine 0.88mg/dL (0.76-1.27) Estimat Glomerular Filtration Rate 95mL/min (>59) Glucose Level 101mg/dL (60-99) Calcium Level 9.1mg/dL (8.5-10.1) Magnesium Level 2.4mg/dL (1.6-2.6) Total Bilirubin 0.6mg/dL (0.0-1.2) Aspartate Amino Transf (AST/SGOT) 28U/L (0-50) Alanine Aminotransferase (ALT/SGPT) 29U/L (0-44) Alkaline Phosphatase 81U/L (25-150) Troponin T < 0.010ug/L (0.0-0.011) Pro-B-Type Natriuretic Peptide 141.5pg/mL (0-210) Total Protein 7.1g/dL (6.4-8.4) Albumin 4.7g/dL (3.4-5.0) ECG Interpretation ECG Interpretation: Sinus rhythm rate 63 T wave inversions II, III, aVF, V5, V6 No change from prior EKG 04/30/16 Time: 17:42 Interpreted by: ED physician Normal ECG Interpretation: No change from prior ECGs X-Ray Chest Interpretation Chest Xray Interpretation: IMPRESSION: No acute cardiopulmonary disease. Dictated by: Ciaran Berry M.D. on 05/12/2016 at 17:56 Approved by: Ciaran Berry M.D. on 05/12/2016 at 17:56 View: Portable, 1 view Interpretation / Wet Read by: Interpret - Radiologist Re-Eval/Medical Decision Med Decision/Clinical Course Patient arrives with chest pain and dizziness and overall decreased level of consciousness, his NIH stroke scale is 0, EKG, chest x-ray, and troponin are unremarkable, he does have some alcohol on board unclear if this is the etiology. Will transfer care to Dr. Davis for further reevaluation and disposition. Time of Eval: 18:25 Re-Evaluation/Progress Note: Pt rechecked, who is resting. Further examination is performed and the possibility of transfer depending on CT results is addressed. Counseled Regarding: Diagnosis, Lab results Discharge & Departure Primary Impression: Chest wall pain Discharge Condition All VS Reviewed: Yes Condition: Stable Referrals: Iggy Hdz MD (PCP) Care Transferred to: Dr. Davis Care Transferred at: 18:00 James Attestation Portions of this note were transcribed by Mike Gilman. I, Dr. Chen personally performed the history, physical exam and medical decision-making; I reviewed and confirmed the accuracy of the information in the transcribed note. Signed by James Pichardo, 05/12/16 - [phone] copies to: Iggy Hdz MD Risk Factors NIH Stroke Scale Level of Consciousness: Alert and responsive (0) Ask Month & Age: Both questions right (0) Open/Close Eyes/Hand Brim Presser: Performs both tasks (0) Horizontal EO Movements: None (0) Visual Valle: No visual loss (0) Facial Palsy: Normal symmetry (0) Right Arm Motor Drift (10s): No drift 10 sec (0) Left Arm Motor Drift (10s): No drift 10 sec (0) Right Leg Motor Drift (5s): No drift 5 sec (0) Left Leg Motor Drift (5s): No drift 5 sec (0) Limb Ataxia FNF/Heel-Samuels: No ataxia (0) Sensation (Arms/Legs/Face): No sensory loss (0) Language Aphasia: No aphasia, normal (0) Dysarthria: No dysarthria, normal (0) Extinction/Inattention: No exctinct/inattent (0) NIHSS Score: 0 Time NIHSS Performed: 17:49 Date NIHSS Performed: May 12, 2016 Singh Chen DO May 12, 2016 17:32 MIKE GILMAN May 12, 2016 17:40 CHRIS SIMPSON May 12, 2016 18:29
[2016-05-12] MEDS ORDERED: Ondansetron 2 mg/mL 2 mL Inj IVPUSH ONE (17:35)
[2016-05-12] MEDS ORDERED: Nitroglycerin 2% 1 Gm Ointment TOPICAL ONE (17:35)
[2016-05-12 17:41] LABS: BASOPHILS % (AUTO) 0.2 % (0-3); EOSINOPHILS % (AUTO) 0.5 % (0-5); MONOCYTES % (AUTO) 4.9 % (4-12); Mean Corpuscular Hemoglobin 31.3 pg (27.0-35.0); Mean Corpuscular Volume 87.4 fL (81-100); NEUTROPHILS % (AUTO) 71.6 % (40-74); Platelet Count 238 bil/L (150-400)
--- NOTE | 2016-05-12 17:58 | DRSVH ---
PROCEDURE: X-RAY CHEST ONE VIEW, PORTABLE ([id number]) INDICATIONS: chest pain TECHNIQUE: One view of the chest was acquired. COMPARISON: [facility], CR, XR CHEST 1VW (PORTABLE), 04/30/2016, 10:39. FINDINGS: Surgical changes and devices: None. Lungs and pleura: No pleural effusions or pneumothorax. Lungs are clear. Mediastinum: Mediastinal contours appear normal. Heart size is normal. Bones and chest wall: No suspicious bony lesions. Overlying soft tissues appear unremarkable. IMPRESSION: No acute cardiopulmonary disease. Dictated by: Ciaran Berry M.D. on 05/12/2016 at 17:56 Approved by: Ciaran Berry M.D. on 05/12/2016 at 17:56
[2016-05-12 18:12] LABS: Magnesium 2.4 mg/dL (1.6-2.6)
[2016-05-12 18:16] LABS: TROPONIN T < 0.010 ug/L (0.0-0.011)
--- NOTE | 2016-05-12 18:27 | DRSVH ---
PROCEDURE: CT BRAIN WITHOUT CONTRAST ([id number]) INDICATIONS: headache TECHNIQUE: Noncontrast 4.5 mm thick angled axial sections acquired from the foramen magnum to the vertex, with c oronal reformats. COMPARISON: [facility], MR, STROKE PROTOCOL (PNL), 07/30/2007, 19:48. [facility], CT, CT BRAIN WO CON, 02/05/2015, 1:32. [facility], CT, CT BRAIN WO CON, 04/30/2016, 19:29. FINDINGS: Image quality: Excellent. CSF spaces: Basal cisterns are patent. No extra-axial fluid collections. The ventricles are symmet mar in size and shape. Brain: No intracranial bleeds or masses. There is mild cerebral volume loss for age, with resultant ventricular and sulcal prominence. There are moderate periventricular and deep white matter chronic small vessel ischemic changes. There is intracranial internal carotid artery and vertebral artery a therosclerosis. Skull and face: Calvarium and visualized facial bones appear intact, without suspicious lesions. Sinuses: There is mucosal thickening and mucous retention cysts in right frontal and bilateral maxill arianna sinuses. Opacified right frontal sinus. The mastoids are clear. IMPRESSION: 1. No acute intracranial abnormalities. 2. Cerebral volume loss and chronic microvascular ischemic changes. 3. Paranasal sinus disease as described. Dictated by: Ciaran Berry M.D. on 05/12/2016 at 18:21 Approved by: Ciaran Berry M.D. on 05/12/2016 at 18:25
[2016-05-12] MEDS ORDERED: ProchlorPERazine 5 mg/mL 2 mL Inj IVPUSH ONE (20:10)
[2016-05-12 21:38] VITALS: BP 147/86; PULSE 80; RESP 16; O2SAT 94
[2016-05-12 21:40] VITALS: BP 143/80; PULSE 79; RESP 14; O2SAT 97
[2016-05-12] MEDS ORDERED: Alum-Mag Hydrox-Simeth 30 mL Suspension PO PRN (22:50)
[2016-05-12] MEDS ORDERED: Ondansetron 2 mg/mL 2 mL Inj IVPUSH PRN (22:50)
[2016-05-12] MEDS ORDERED: Polyethylene Glycol (PEG) 17 Gm Powder PO PRN (22:50)
--- NOTE | 2016-05-12 23:07 | PCM.HPMED ---
Subjective Date of Service May 12, 2016 Primary Provider: Admitting Physician: Ada Moy MD Primary Care Physician: Iggy Hdz MD Attending Physician: Ada Moy MD Chief Complaint: Vertigo History of Present Illness: Today around 2 PM he noted a sudden onset of dizziness which was a sensation like the room spinning. It was worse when he turned his head certain way. He also felt like his vision was blurred and see triple. No nausea or vomiting. Currently he is feeling tired and his dizziness has resolved. The emergency department he was noted to have nystagmus. The physician says she discussed this with a neurologist at [facility] who recommended the patient be admitted to observation to obtain an MRI and carotid duplex. He did have a carotid duplex earlier this month during an admission for chest pain was unremarkable. Currently he was complaining of some dizziness during that admission. Review of Systems: Review of systems is otherwise unremarkable Allergies Coded Allergies: No Known Allergies (Verified , 04/30/16) Home Medications Nitroglycerin 0.4 mg sublingually when necessary Amlodipine 5 mg daily Plavix 75 mg daily Hydrochlorothiazide 25 mg daily Lisinopril 40 mg daily Atorvastatin 80 mg each evening Metoprolol succinate 25 mg daily PMH Coronary artery disease with history of NE and cardiac stents. Conclusion from coronary angiogram earlier this month:No critical stenosis is identified. Continue medical therapy. Hypertension Hyperlipidemia CVA Renal cancer with nephrectomy Alcoholism Brain aneurysm Surgical History C-spine multilevel laminectomy Partial nephrectomy Appendectomy Tonsillectomy Multiple cardiac stents Family History Brother has had a 5 vessel CABG and has diabetes Father has had an NE Sister had diabetes and related to this Mother also related to diabetes Social History Hx Alcohol Use: Yes (ED doc reported 1-2 sixpacks per day, to me he is only admitting to 3 beers per day, has been cutting back) Hx Substance Use: No Hx Tobacco Use: No Smoking Status: Never Smoker Additional Information 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 , 4 children, no healthcare power of insurance defense attorney Exam Vital Signs Vital Sign - Last Date Time Temp Pulse Resp B/P Pulse Ox O2 Delivery O2 Flow Rate FiO2 05/12/16 21:40 36.4 79 14 143/80 97 Room Air Exam General: Alert and oriented, no acute distress HEENT: Unremarkable other than perhaps mild nystagmus when he gazes to the right , cranial nerves intact Heart: Regular Lungs: Clear Abdomen: Soft, non-tender Extremities: No pedal edema Neuro: Motor strength is 5 over 5 symmetrical, finger to nose testing with good coordination and heel knee to ayala also with fairly good coordination Lab and Diagnostics Result Diagram: 05/12/16173005/12/161730 Assessment & Plan # Acute onset of vertigo this afternoon, now much improved, ED physician discussed this with a neurologist at [facility] who felt this was most likely related to the inner ear but still recommended he be admitted to observation so that carotid duplex and MRI could be obtained. MRI/MRA have been ordered for tomorrow. Carotid duplex was already done earlier this month. Symptoms are much improved so presumably can discharge home after MRI if unremarkable # other chronic medical problems appear stable, continue usual meds Ada Moy MD May 12, 2016 23:07
[2016-05-13] VITALS (8 sets, daily range): BP systolic 133–148; BP diastolic 67–87; PULSE 56–70; RESP 14–16; O2SAT 97–99
--- NOTE | 2016-05-13 01:15 | NUR ---
Admit Pt arrived to [address] at 2130 via stretcher. Pt was quite drowsy, but was able to rouse enough to get on scale and walk to bed very unsteadily. Pt appears very lethargic and sedated, wakes to minimal stimulation, and is able to answer any questions appropriately, appearing alert and oriented. Pt quickly returns to sleep after any rousing, placed on CPOX for sedation. Non slip socks on for safety, pt oriented to room and call light, standby for safety.
[2016-05-13] MEDS: MeTOProlol XL 25 mg ER24 Tablet PO SCH (07:37)
[2016-05-13] MEDS: Lisinopril 40 Tablet PO SCH ×2 (08:24→20:11)
[2016-05-13 09:06] LABS: BASOPHILS % (AUTO) 0.2 % (0-3); MONOCYTES % (AUTO) 5.2 % (4-12); Mean Corpuscular Hemoglobin 30.9 pg (27.0-35.0); NEUTROPHILS % (AUTO) 76.9 % (40-74); Platelet Count 218 bil/L (150-400)
[2016-05-13 09:29] LABS: Magnesium 2.4 mg/dL (1.6-2.6)
[2016-05-13] MEDS: HYDROcodone-APAP 5-325 mg Tablet PO PRN ×3 (10:09→20:11)
--- NOTE | 2016-05-13 10:40 | NUR ---
Morning Rounds Staffed patient's case with Dr. Oliver and case management. Made MD aware of patient's increasing headache and patient's question of a possible transfer to [facility]. Dr. Oliver stated patient will likely be discharged today pending MRI.
--- NOTE | 2016-05-13 11:11 | NUR ---
Social Work-screening/ readiness for discharge: Data:EMR reviewed. Pt is a 55 y/o male who was admitted on 05/12/16 for nystagmus per H&P. Pt's insurance is kwiry and PCP is Iggy Hdz MD. EMR reviewed. Pt is a readmission just discharging home on 05/03 with no needs. SW met with pt and sister at bedside to discuss discharge planning, SW role explained. Pt is alert and oriented x3. Pt resides at home alone in a mobile home with 3 steps. Pt is independent at baseline and continues to work in [place]. SW discussed DPOA/ advanced directive, pt states he has never completed this and is interested in the paperwork, SW has provided this to pt. SW discussed pt's Current ETOH, pt has been cutting down and was provided with CD resources at last admission. Pt states he has them at home and will use them if needed. Per RN notes, pt has been up independent in his room. Pt's family to provide transport home. SW provided phone number and plan on white board in room. No anticipated discharge needs. SW will continue to follow if needs arise. Assessment:Pt who is independent at baseline. Plan:Pt to discharge home when medically stable via POV. No anticipated discharge needs. SW will continue to follow if needs arise. YUE More
--- NOTE | 2016-05-13 11:46 | NUR ---
Transfer to MRI Patient transported off unit for MRI at this time.
--- NOTE | 2016-05-13 12:25 | NUR ---
Return from MRI Patient returned to room from MRI via wheelchair.
--- NOTE | 2016-05-13 13:24 | DRSVH ---
PROCEDURE: MRI BRAIN WITH AND WITHOUT CONTRAST ([id number]) INDICATIONS: vertigo TECHNIQUE: Noncontrast axial T1 spin echo, axial T2 fast spin echo, sagittal and axial FLAIR, coronal T2 fast sp in echo, axial gradient echo, axial diffusion and ADC through the brain. After the administration of contrast, axial and coronal 3D VIBE or T1 spin echo with fat saturation through the brain. COMPARISON: [facility], MR, MR ANGIO HEAD WO CON, 05/13/2016, 11:55. [facility], MR, STROKE PROTOCOL (PNL), 07/30/2007, 19:48. [facility], CT, CT BRAIN WO CON, 2016, 18:06. [facility], CT, CT BRAIN WO [facility], 02/05/2015, 1:32. FINDINGS: Image quality: Excellent. CSF Spaces: Basal cisterns are patent. No extra-axial fluid collections. Ventricles are normal in size and shape. Brain: No midline shift. No intracranial bleeds or masses. No abnormal intracranial enhancement. The brainstem appears normal. Mild periventricular and subcortical white matter chronic microvascular ischemic changes noted. Focus of increased T2 signal noted in the anterior left knight radiata may r epresent chronic microvascular ischemic changes versus gliosis associated with small lacunar infarcts . Diffusion-weighted images demonstrate no acute ischemic insults. No chronic ischemic insults. Nor mal intravascular flow voids are present. Skull and face: Calvarial marrow is normal in signal. Orbits appear normal. Sinuses: Mucosal thickening noted in the right frontal sinus and the maxillary sinuses bilaterally. B ilateral maxillary sinus mucus retention cysts versus polyps noted. The mastoids appear clear. IMPRESSION: No acute intracranial disease process. Dictated by: Stephanie Smith MD, PhD on 05/13/2016 at 12:34 Approved by: Stephanie Smith MD, PhD on 05/13/2016 at 13:22
--- NOTE | 2016-05-13 13:33 | DRSVH ---
PROCEDURE: MRA ANGIOGRAM HEAD WITHOUT CONTRAST ([id number]) INDICATIONS: vertigo TECHNIQUE: Noncontrast axial 3-D [id number] MR angiogram, with 3-dimensional maximum intensity projection (M IP) reformats of the internal carotid arteries and posterior circulation then performed. COMPARISON: None. FINDINGS: Image quality: Excellent. Anterior circulation: Atherosclerotic irregularity noted in the supraclinoid segment of the right int ercerebral artery which causes a short segment, high-grade stenosis. There is absence of flow in the A1 segment of the right anterior cerebral artery compatible with occlusion versus congenital hypoplas ia. Flow is noted in the A2 segment of the right anterior cerebral. Normal flow is noted in the left anterior cerebral artery. Normal flow noted in the anterior communicating artery. The flow within the middle cerebral arteries is normal and symmetric. No cerebral aneurysms. Posterior circulation: Atherosclerotic irregularity noted in the brachial artery distal to the origin of the right posterior inferior cerebral artery causing multifocal high grade stenoses. Atherosclero tic irregularity noted in the left vertebral artery distal to the origin of the left posterior inferi or cerebral artery causing multifocal moderate stenoses. Atherosclerotic irregularity noted in the pr oximal basilar artery causing a focal high-grade stenosis. Right posterior she will artery is a origin which is a congenital anatomic variant. Atherosclerotic irregularity noted in the P1 segment of the left posterior cerebral artery which causes high grade stenosis. No cerebral aneurysms. IMPRESSION: 1. High-grade stenosis of the origin of the supraclinoid segment of the right internal carotid artery . 2. 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 3. Multifocal, high-grade stenoses involving the V4 segments of the right vertebral artery. 4. Multifocal, moderate stenoses involving the V4 segments of the left vertebral artery. 5. Focal, high-grade stenosis involving the basilar artery. 6. Focal, high-grade stenosis involving the P1 segment of the right posterior cerebral artery. Dictated by: Stephanie Smith MD, PhD on 05/13/2016 at 13:24 Approved by: Stephanie Smith MD, PhD on 05/13/2016 at 13:31
--- NOTE | 2016-05-13 14:50 | NUR ---
EKG/Telemetry monitoring Received call from [employer], was told patient's cardiac monitor technician reveals inverted T waves and ST elevation in lead, SR in the 70's. Contacted Dr. Oliver with the following cook page: Telemetry monitoring reveals inverted T wave and ST elevation in lead 5. Would you like EKG done now or wait until 05/14 as ordered, please advise. Thank you. Belkys ANDERSON
--- NOTE | 2016-05-13 15:40 | NUR ---
EKG changes Contacted Dr. Oliver with the following cook page: EKG complete and tech reported ST is wider and more elevated since previous EKG done this admission, along with patient reporting continued chest pain and is having sweats. Thank you. Belkys ANDERSON
--- NOTE | 2016-05-13 16:40 | NUR ---
Transfer to X-Ray Patient off unit at this time, transferred via wheelchair to x-ray.
--- NOTE | 2016-05-13 16:55 | NUR ---
Return from X-ray Patient back in room from x-ray, placed back on O2 and continuous pulse ox, resting well at this time.
--- NOTE | 2016-05-13 17:00 | DRSVH ---
PROCEDURE: X-RAY CERVICAL SPINE, 2 OR 3 VIEWS INDICATIONS: CHEST PRESSURE TECHNIQUE: 4 view(s) of the cervical spine were acquired. COMPARISON: None. FINDINGS: Bones: No fractures or dislocations to the T1 level. The lateral masses of C1 appear intact on the odontoid view. No suspicious bony lesions. Loss of lordosis. Prior ACDF C6-C7 with hardware and rika ne graft in expected position. There is loss of lordosis and mild mid and lower cervical spine multi level disc degeneration. Soft tissues: No prevertebral soft tissue swelling. IMPRESSION: 1. Prior ACDF at C6-C7. 2. Mild multilevel cervical spine disc degeneration and loss of lordosis. Dictated by: Yayo Robertson [facility] Interpreted: Ciaran Berry MD on 05/13/2016 at 16:59 Transcribed by: WIDLER on 05/13/2016 at 17:00 Approved by: Ciaran Berry M.D. on 05/14/2016 at 7:52
--- NOTE | 2016-05-13 20:24 | PCM.PNMED ---
Subjective Date of Service May 13, 2016 Subjective Patient continues to complain of headache and dizziness. He also continues to complain of chest pain. He has no other new complaints. He appears to be eating well and appears to be in no apparent distress. Exam Vital Signs Vital Sign - Last Date Time Temp Pulse Resp B/P Pulse Ox O2 Delivery O2 Flow Rate FiO2 05/13/16 18:18 36.9 63 16 133/67 97 Nasal Cannula 2.00 Intake and Output 05/12/16 05/12/16 05/13/16 Cumulative From/Thru 15:00 23:00 07:00 05/12/16 22:00 - 05/13/16 06:08 Intake Total 200 ml 200 ml Output Total 700 ml 700 ml Balance -500 ml -500 ml Intake Oral 200 ml 200 ml Output Urine Total 700 ml 700 ml Exam General: Patient is in no apparent distress. He is sitting up in bed and eating food brought from home. HEENT: Head is atraumatic and normocephalic. Eyes: Pupils are pinpoint, but equally round and reactive to light and accommodation. Extraocular muscles are intact. Sclera are white, anicteric. Subconjunctival mucosa is pink. Ears and nose are unremarkable. Oropharynx: There is no mucosal lesions, there is no thrush, there is no pharyngitis. Neck: Is supple, there are no nodes, or masses or tenderness. Chest: Is clear to auscultation and percussion. There are no rales, rhonchi, wheezes or rubs. Heart: Rate, rhythm is regular. There is no murmur, rub or gallop. Abdomen: Good bowel sounds are present. Abdomen is soft, nontender, no organomegaly or masses were appreciated. Extremities: Are symmetrical and well perfused. There is no edema, there is no cellulitis, no rash. Neurologic: There are no focal neurological deficits. Cranial nerves II through XII are intact. There are no sensory or motor deficits. Psychiatric: Patients mood is calm and shows no sign of agitation. Genital: Deferred Rectal: Deferred Lab and Diagnostics Result Diagram: 05/13/16 0805/13/16 0855 X-Rays, CTs and MRIs PROCEDURE: X-RAY CERVICAL SPINE, 2 OR 3 VIEWS INDICATIONS: CHEST PRESSURE TECHNIQUE: 4 view(s) of the cervical spine were acquired. COMPARISON: None. FINDINGS: Bones: No fractures or dislocations to the T1 level. The lateral masses of C1 appear intact on the odontoid view. No suspicious bony lesions. Loss of lordosis. Prior ACDF C6-C7 with hardware and bone graft in expected position. There is loss of lordosis and mild mid and lower cervical spine multilevel disc degeneration. Soft tissues: No prevertebral soft tissue swelling. IMPRESSION: 1. Prior ACDF C6-C7. 2. Mild multilevel mid and lower cervical spine disc degeneration and loss of lordosis. Dictated by: Yayo FONG Interpreted: Ciaran Berry MD on 05/13/2016 at 16:59 Transcribed by: WILDER on 05/13/2016 at 17:00 Assessment & Plan The patient is a 55-year-old male who noticed the day of admission, around 2 PM, a sudden onset of dizziness which was a sensation like the room spinning. It was worse when he turned his head certain way. He also felt like his vision was blurred and he was seeing triple. She has had no nausea or vomiting. Currently he is feeling tired and his dizziness has resolved. In the emergency department he was noted to have nystagmus. The emergency room physician says she discussed this with a neurologist at [facility] who recommended the patient be admitted to observation here at [facility] and to obtain an MRI and carotid duplex. He did have a carotid duplex earlier this month during an admission for chest pain was unremarkable. Apparently he was complaining of some dizziness during that admission. Therefore, patient was brought in and under observation to the hospital service for further evaluation and treatment. # Acute onset of vertigo present on admission - This is now much improved, however still persists. - ED physician discussed this with a neurologist at [facility] who felt this was most likely related to the inner ear but still recommended he be admitted to observation so that carotid duplex and MRI could be obtained. - MRI/MRA have been completed and show no acute changes.. - Carotid duplex was already done earlier this month. # Coronary artery disease with persistent subjective chest pain - Patient underwent a coronary angiogram Dr. Galeano on 05/02/2016 and the results are as follows: "ANGIOGRAPHIC FINDINGS: 1. Left main: No significant disease. 2. LAD: A moderate caliber, diffusely diseased vessel with disease of 10% to 20% in its entirety. In its mid segment, it has stents. These stents are widely patent. The two moderate caliber 1-1.5 mm diagonals have ostial 30-50% disease with no critical stenosis in the bodies. 3. Circumflex is dominant. It is diffusely diseased and has disease of 20% to 30% in its entirety. A small caliber ramus intermedius branch has an ostial 30% to 40% lesion. The circumflex in its mid segment has two stenoses of about 50% to 60%. These appear to be associated with the stent indicating candy wrapper-type of stent stenosis. It does not appear to be critical. The left PDA is free of any critical stenosis. 4. The right coronary is a small caliber vessel that takes off high as well as anteriorly. It is nondominant and diffusely diseased and essentially unchanged from the previous imaging. 5. Left heart catheterization revealed an LVEDP of 8. There was no gradient upon pullback. A hand injection was not very helpful in determining ejection fraction. An echocardiogram is recommended. SUMMARY: No critical stenosis is identified. Continue medical therapy." # Chest pain - As patient continues to complain of chest pain we will repeat serial troponins and EKGs which to date do not appear to show any significant difference. It is certainly possible patient will continue to have some angina given his coronary artery disease as described above. - We will also check C-spine x-ray as he states that his chest pain was blamed on his cervical spine last admission. # Hypertension - Controlled at present time continue current therapy # Hyperlipidemia - Continue statin # History of a CVA and/or brain aneurysm - Patient stated to me that he had a "clot on the brain" - MRI shows no acute findings. # History of Renal cancer with nephrectomy - Watch renal function closely # History of Alcoholism Disposition: Patient will be here for another 24 hours of monitoring. Pain Evaluation: Adequate Pain Control GI Prophylaxis: Proton Pump Inhibitor VTE Prophylaxis: Sub-Q Heparin (Unfractionated) VTE Mechanical Devices: Intermittant Pneumatic CD Resuscitation Status: CPR: Attempt Resuscitation Jc Oliver MD May 13, 2016 20:24
[2016-05-13] MEDS: Heparin 5,000 Unit/mL Inj SUBQ SCH (22:38)
[2016-05-14 02:22] VITALS: BP 144/86; PULSE 50; RESP 14; O2SAT 98
[2016-05-14 02:37] LABS: BASOPHILS % (AUTO) 0.5 % (0-3); EOSINOPHILS % (AUTO) 2.4 % (0-5); MONOCYTES % (AUTO) 6.6 % (4-12); Mean Corpuscular Volume 88.6 fL (81-100); NEUTROPHILS % (AUTO) 62.6 % (40-74); Platelet Count 219 bil/L (150-400)
[2016-05-14 02:57] LABS: TROPONIN T 0.01 ug/L (0.0-0.011)
[2016-05-14] MEDS: Heparin 5,000 Unit/mL Inj SUBQ SCH ×2 (05:00→08:43)
--- NOTE | 2016-05-14 05:21 | NUR ---
Shift Note Pt has been noticeable less drowsy and sedate from last night. Pt is still unsteady on feet, but much better mental clarity. Pt has been NS ab according to television producer, occasionally below 50bpm. Otherwise pt has been reporting good rest and feeling much better.
[2016-05-14 06:00] VITALS: BP 162/90; PULSE 50; RESP 16; O2SAT 100
[2016-05-14] MEDS: HYDROcodone-APAP 5-325 mg Tablet PO PRN ×2 (06:00→11:44)
[2016-05-14] MEDS ORDERED: Pantoprazole 40 mg ER24 Tablet PO SCH (07:30)
[2016-05-14] MEDS: MeTOProlol XL 25 mg ER24 Tablet PO SCH (08:30)
[2016-05-14 08:44] VITALS: BP 148/85; PULSE 51
[2016-05-14 10:56] VITALS: PULSE 63
--- NOTE | 2016-05-14 10:56 | NUR ---
Social work note - Discharge METAL BONDING HELPER met with pt - MD identifies that pt is able to d/c home today with follow up with PCP later this week. Pt's daughter and brother also in the room. Pt denies any needs - states that he has family support. Pt's family had questions about social security disability. METAL BONDING HELPER recommended that pt discuss with PCP and recommended applying for SSD online if Pt's PCP agrees that his health will not allow him to continue working. Pt states that he has CD resources at home and will follow up if needed. Plan: Home today with family providing transportation. NELLIE Moreno
[2016-05-14 11:00] VITALS: BP 161/98; PULSE 60; RESP 16; O2SAT 96
--- NOTE | 2016-05-14 11:14 | NUR ---
Evaluation completed. Please go to "Notes" then click on "Assessments and Notes" (bottom left corner of screen). Then select appropriate discipline tab on top of screen.
[2016-05-14] MEDS: Lisinopril 40 Tablet PO SCH (11:41)
--- NOTE | 2016-05-14 12:27 | PCM.DIMED ---
Discharge Instructions Date of Service May 14, 2016 Dates of Hospitalization May 12, 2016 at 19:45 Discharge Diagnosis Discharge Diagnosis # Acute onset of vertigo present on admission, MRI negative for acute stroke # Coronary artery disease with persistent subjective chest pain recent angiogram negative # Chest pain likely musculoskeletal,resolved # Hypertension # Hyperlipidemia # History of a CVA and/or brain aneurysm # History of Renal cancer with nephrectomy # History of Alcoholism Test Results MRA IMPRESSION: 1. High-grade stenosis of the origin of the supraclinoid segment of the right internal carotid artery. 2. 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 3. Multifocal, high-grade stenoses involving the V4 segments of the right vertebral artery. 4. Multifocal, moderate stenoses involving the V4 segments of the left vertebral artery. 5. Focal, high-grade stenosis involving the basilar artery. 6. Focal, high-grade stenosis involving the P1 segment of the right posterior cerebral artery. Diet Low fat, Low Sodium, Heart Healthy Activity Limited until seen by PCP Call your provider Fever or Chills, Shortness of breath, Bleeding, Chest pain, Vomitting, Excessive diarrhea, Weakness (unilateral), Other (worsening vertigo) Patient Instructions You were hospitalized due to vertigo. MRI is negative for acute stroke. You have high grade stenosis in multiple intracranial arteries. Case discussed with Dr Faustin [facility] neurologist nurse transition . Vertigo likely peripheral due to possibly vestibulitis. physical therapy recommends outpatient vestibular rehab.Please follow up with that . Please continue Aspirin ,plavix and atorvastatin as prescribed. Please follow up with Dr Hdz on 05/20 as scheduled. I spoke with Dr Hdz and discussed case regarding your follow up .Please take meclizine as needed for vertigo. Follow-up plan please follow up with PCP in 5 days on 05/20 Follow-up Provider: Iggy Hdz MD Follow-up with PCP in: 1 week Lawrence Fernandez MD May 14, 2016 12:27
[2016-05-14] MEDS ORDERED: Meclizine Hcl PO (12:28)
[2016-05-14] MEDS ORDERED: ASPI81TA3 PO (12:28)
--- NOTE | 2016-05-14 12:43 | DRSVH ---
[facility] [address] [facility] [facility] [place] [address] Echocardiogram Report Name: TIGRE SWEETy Dereck e: 05/14/2016 Height: 68 in Hospital Exam Location: [facility] Weight: 208 lb Gender: Male BSA: 2.1 m2 : 1960 Age: 55 yrs BP: 162/90 mmHg Reason For Study: Dizziness Ordering Physician: Performed By: [facility] Staff Interpretation Summary Left ventricular systolic function is borderline reduced. Left ventricular ejection fraction is estimated to be 50%. There has been no significant change since the previous study. There is severe hypokinesis in the mid posterior wall with associated echogenicity, suggestive of old scar, that is unchanged compared to the previous study. The E/E' ratio is mildly increased, suggesting possible increased filling pressures. The right ventricle is normal in size and function. The left atrium is moderately dilated. The right atrium is mildly dilated. There is no significant valvular heart disease. The aortic root is normal size. Procedure: A two-dimensional transthoracic echocardiogram with color flow and Doppler was performed. The study quality was technically good. Comparison is made with the echocardiogram of 02/09/2016. The patient was in normal sinus rhythm during the exam. Left Ventricle: The left ventricle is normal in size. There is normal left ventricular wall thickness. Left ventricular systolic function is borderline reduced. Left ventricular ejection fraction is estimated to be 50%. There has been no significant change since the previous study. There is evere hypokinesis in the mid posterior wall with associated echogenicity, suggestive of old scar, that is unchanged compared to the previous study. The E/E' ratio is mildly increased, suggesting possible increased filling pressures. Right Ventricle: The right ventricle is normal in size and function. Atria: The left atrium is moderately dilated. The right atrium is mildly dilated. The interatrial septum is intact with no evidence for an atrial septal defect. Mitral Valve: The mitral valve is normal in structure and function. There is no mitral valve stenosis. There is trace mitral regurgitation. Aortic Valve: The aortic valve is normal in structure and function. There is no aortic valve stenosis. There is trace aortic regurgitation. Tricuspid Valve: The tricuspid valve is normal in structure and function. There is trace tricuspid regurgitation. Pulmonic Valve: The pulmonic valve is normal in structure and function. There is no pulmonic valvular regurgitation. There is no significant valvular heart disease. Great Vessels: The aortic root is normal size. The dimensions of the ascending aorta are normal. The pulmonary artery is normal size. The IVC is of normal diameter and collapses greater than 50% with a sniff. This suggests a low right atrial pressure of 3 mm Hg. Pericardium/ Pleura There is no pericardial effusion. There is no pleural effusion. MMode/2D Measurements & Calculations LVIDd: 5.6 cm LA dimension: 3.8 cm RA long axis: 5.0 cm LVOT diam LVIDs: 3.5 cm FS: 38.3 % LA A2 area: 25.6 cm RA area: 20.7 cm AoV Opening EPSS: 1.2 cm LA A4 area: 25.3 cm RA vol: 72.3 ml IVSd: 1.0 cm LA length (vol): 5.6 cm RA : 34.8 ml/m2 Ao root diam LVPWd: 0.98 cm LA vol: 97.3 ml LA vol index asc Aorta Diam: 3.4 cm IVC diam: 0.91 cm EDV(MOD-sp2) LV michael. diameter/BSA LV sys. diameter/BSA TAPSE: 2.4 cm : 204.1 ml (cm/m^2): 2.7 (cm/m^2): 1.7 Doppler Measurements & Calculations Ao V2 max MV E max rupesh MV E/A: 0.94 PA V2 max : 209.4 cm/sec : 92.6 cm/sec Med Peak E' Rupesh : 79.8 cm/sec Ao max PG MV A max rupesh PA mean PG : 17.6 mmHg : 98.4 cm/sec E/E' med: 20.4 Ao mean PG MV P1/2t: 75.1 msec Lat Peak E' Rupesh PA Accel Time : 0.11 sec LVOT Max Rupesh E/E' lat: 13.6 : 116.1 cm/sec E/e' average: 17.0 SINDI(I,D): 1.9 cm sev ratio MV dec time MV P1/2t max rupesh Ao V2 mean LV V1 max PG : 0.25 sec : 139.6 cm/sec MVA(P1/2t): 2.9 cm2 Ao V2 VTI: 40.2 cm LV V1 VTI SINDI(V,D): 2.0 cm2 : 21.9 cm PA V2 mean SINDI indexed to BSA : 52.8 cm/sec (cm^2/m^2): 0.93 Reading Physician:PM
--- NOTE | 2016-05-14 13:29 | PCM.DC.MED ---
Discharge Summary Date of Service May 14, 2016 Dates of Hospitalization Date of Hospital Admission May 12, 2016 at 19:45 Date of Discharge: May 14, 2016 Providers: Admitting Physician: Ada Moy MD Primary Care Physician: Iggy Hdz MD Attending Physician: Ada oMy MD Diagnosis at Time of Discharge Diagnosis at Time of Discharge # Acute onset of vertigo present on admission, MRI negative for acute stroke # Coronary artery disease with persistent subjective chest pain recent angiogram negative # Chest pain likely musculoskeletal,resolved # Hypertension # Hyperlipidemia # History of a CVA and/or brain aneurysm # History of Renal cancer with nephrectomy # History of Alcoholism Consultations [facility] neurology teleconsult,Dr Faustin airport operations specialist Procedures XRay, CTs & MRIs PROCEDURE: X-RAY CERVICAL SPINE, 2 OR 3 VIEWS INDICATIONS: CHEST PRESSURE TECHNIQUE: 4 view(s) of the cervical spine were acquired. COMPARISON: None. FINDINGS: Bones: No fractures or dislocations to the T1 level. The lateral masses of C1 appear intact on the odontoid view. No suspicious bony lesions. Loss of lordosis. Prior ACDF C6-C7 with hardware and bone graft in expected position. There is loss of lordosis and mild mid and lower cervical spine multilevel disc degeneration. Soft tissues: No prevertebral soft tissue swelling. IMPRESSION: 1. Prior ACDF C6-C7. 2. Mild multilevel mid and lower cervical spine disc degeneration and loss of lordosis. Dictated by: Yayo Robertson [facility] Interpreted: Ciaran Berry MD on 05/13/2016 at 16:59 Transcribed by: WILDER on 05/13/2016 at 17:00 PROCEDURE: MRA ANGIOGRAM HEAD WITHOUT CONTRAST ([id number]) INDICATIONS: vertigo TECHNIQUE: Noncontrast axial 3-D [id number] MR angiogram, with 3-dimensional maximum intensity projection (MIP) reformats of the internal carotid arteries and posterior circulation then performed. COMPARISON: None. FINDINGS: Image quality: Excellent. Anterior circulation: Atherosclerotic irregularity noted in the supraclinoid segment of the right intercerebral artery which causes a short segment, high- grade stenosis. There is absence of flow in the A1 segment of the right anterior cerebral artery compatible with occlusion versus congenital hypoplasia. Flow is noted in the A2 segment of the right anterior cerebral. Normal flow is noted in the left anterior cerebral artery. Normal flow noted in the anterior communicating artery. The flow within the middle cerebral arteries is normal and symmetric. No cerebral aneurysms. Posterior circulation: Atherosclerotic irregularity noted in the brachial artery distal to the origin of the right posterior inferior cerebral artery causing multifocal high grade stenoses. Atherosclerotic irregularity noted in the left vertebral artery distal to the origin of the left posterior inferior cerebral artery causing multifocal moderate stenoses. Atherosclerotic irregularity noted in the proximal basilar artery causing a focal high-grade stenosis. Right posterior she will artery is a origin which is a congenital anatomic variant. Atherosclerotic irregularity noted in the P1 segment of the left posterior cerebral artery which causes high grade stenosis. No cerebral aneurysms. IMPRESSION: 1. High-grade stenosis of the origin of the supraclinoid segment of the right internal carotid artery. 2. 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 3. Multifocal, high-grade stenoses involving the V4 segments of the right vertebral artery. 4. Multifocal, moderate stenoses involving the V4 segments of the left vertebral artery. 5. Focal, high-grade stenosis involving the basilar artery. 6. Focal, high-grade stenosis involving the P1 segment of the right posterior cerebral artery. Dictated by: Stephanie Smith MD, PhD on 05/13/2016 at 13:24 PROCEDURE: MRI BRAIN WITH AND WITHOUT CONTRAST ([id number]) INDICATIONS: vertigo TECHNIQUE: Noncontrast axial T1 spin echo, axial T2 fast spin echo, sagittal and axial FLAIR, coronal T2 fast spin echo, axial gradient echo, axial diffusion and ADC through the brain. After the administration of contrast, axial and coronal 3D VIBE or T1 spin echo with fat saturation through the brain. COMPARISON: [facility], MR, MR ANGIO HEAD WO CON, 05/13/2016, 11: 55. [facility], MR, STROKE PROTOCOL (PNL), 07/30/2007, 19:48. [facility], CT, CT BRAIN WO CON, 05/12/2016, 18:06. [facility], CT, CT BRAIN WO [facility], 02/05/2015, 1:32. FINDINGS: Image quality: Excellent. CSF Spaces: Basal cisterns are patent. No extra-axial fluid collections. Ventricles are normal in size and shape. Brain: No midline shift. No intracranial bleeds or masses. No abnormal intracranial enhancement. The brainstem appears normal. Mild periventricular and subcortical white matter chronic microvascular ischemic changes noted. Focus of increased T2 signal noted in the anterior left knight radiata may represent chronic microvascular ischemic changes versus gliosis associated with small lacunar infarcts. Diffusion-weighted images demonstrate no acute ischemic insults. No chronic ischemic insults. Normal intravascular flow voids are present. Skull and face: Calvarial marrow is normal in signal. Orbits appear normal. Sinuses: Mucosal thickening noted in the right frontal sinus and the maxillary sinuses bilaterally. Bilateral maxillary sinus mucus retention cysts versus polyps noted. The mastoids appear clear. IMPRESSION: No acute intracranial disease process. Dictated by: Stephanie Smith MD, PhD on 05/13/2016 at 12:34 Brief History per HPI by Dr Moy on 05/12/16 Today around 2 PM he noted a sudden onset of dizziness which was a sensation like the room spinning. It was worse when he turned his head certain way. He also felt like his vision was blurred and see triple. No nausea or vomiting. Currently he is feeling tired and his dizziness has resolved. The emergency department he was noted to have nystagmus. The physician says she discussed this with a neurologist at [facility] who recommended the patient be admitted to observation to obtain an MRI and carotid duplex. He did have a carotid duplex earlier this month during an admission for chest pain was unremarkable. Currently he was complaining of some dizziness during that admission. Hospital Course The patient is a 55-year-old male who noticed the day of admission, around 2 PM, a sudden onset of dizziness which was a sensation like the room spinning. It was worse when he turned his head certain way. He also felt like his vision was blurred and he was seeing triple. She has had no nausea or vomiting. Currently he is feeling tired and his dizziness has resolved. In the emergency department he was noted to have nystagmus. The emergency room physician says she discussed this with a neurologist at [facility] who recommended the patient be admitted to observation here at [facility] and to obtain an MRI and carotid duplex. He did have a carotid duplex earlier this month during an admission for chest pain was unremarkable. Apparently he was complaining of some dizziness during that admission. Therefore, patient was brought in and under observation to the hospital service for further evaluation and treatment. # Acute onset of vertigo present on admission -Likely prefer to go from vestibulitis. - This is now much improved, however still persists. - MRI/MRA : Negative for acute stroke but multiple high-grade stenosis in the intracranial arteries. Images reviewed by and case discussed with Dr. Faustin at [facility] neurology, vertigo likely peripheral even if horizontal nystagmus. Recommend continuing aspirin, Plavix and statin. - Physical therapy recommended outpatient vestibular rehabilitation -Continue meclizine when necessary for vertigo -Spoke with his PCP Dr. Hdz, he will see him on 05/20 -Patient may need to be referred to [facility] if his symptoms persist # Coronary artery disease with persistent subjective chest pain - Patient underwent a coronary angiogram Dr. Galeano on 05/02/2016 :No critical stenosis is identified. Continue medical therapy # Chest pain - As patient continues to complain of chest pain we will repeat serial troponins and EKGs which to date do not appear to show any significant difference. It is certainly possible patient will continue to have some angina given his coronary artery disease as described above. # Hypertension - Controlled at present time continue current therapy # Hyperlipidemia - Continue statin # History of a CVA and/or brain aneurysm - Patient stated to me that he had a "clot on the brain" - MRI shows no acute stroke # History of Renal cancer with nephrectomy - Watch renal function closely # History of Alcoholism Disposition: Discharged home Outpatient physical therapy for vestibular rehabilitation Condition on discharge stable Exam Vital Signs (Last) Date Time Temp Pulse Resp B/P Pulse Ox O2 Delivery O2 Flow Rate FiO2 05/14/16 11:00 37.0 60 16 161/98 96 Room Air 05/14/16 06:00 2.00 Exam General: Patient is in no apparent distress. He is sitting up in bed and eating food brought from home. HEENT: Head is atraumatic and normocephalic. Eyes: Pupils are pinpoint, but equally round and reactive to light and accommodation. Extraocular muscles are intact. Sclera are white, anicteric. Subconjunctival mucosa is pink. Ears and nose are unremarkable. Oropharynx: There is no mucosal lesions, there is no thrush, there is no pharyngitis. Neck: Is supple, there are no nodes, or masses or tenderness. Chest: Is clear to auscultation and percussion. There are no rales, rhonchi, wheezes or rubs. Heart: Rate, rhythm is regular. There is no murmur, rub or gallop. Abdomen: Good bowel sounds are present. Abdomen is soft, nontender, no organomegaly or masses were appreciated. Extremities: Are symmetrical and well perfused. There is no edema, there is no cellulitis, no rash. Neurologic: Horizontal nystagmus when he moves his eyes to the left. No motor or sensory deficit Genital: Deferred Rectal: Deferred Test 05/12/16 17:31 05/13/16 08:55 05/14/16 02:25 05/14/16 08:45 Pro-B-Type Natriuretic Peptide 141.5pg/mL (0-210) Phosphorus Level 4.0mg/dL (2.5-4.9) White Blood Count 6.6th/mm3 (3.8-10.1) Red Blood Count 4.74mil/mm3 (4.40-5.80) Hemoglobin 14.7g/dL (13.8-17.2) Hematocrit 42.0% (41.0-50.0) Mean Corpuscular Volume 88.6fL (81-100) Mean Corpuscular Hemoglobin 31.0pg (27.0-35.0) Mean Corpuscular Hemoglobin Concent 35.0% (32.0-37.0) Red Cell Distribution Width 13.1% (12.3-15.4) Platelet Count 219bil/L (150-400) Neutrophils (%) (Auto) 62.6% (40-74) Lymphocytes (%) (Auto) 27.6% (14-46) Monocytes (%) (Auto) 6.6% (4-12) Eosinophils (%) (Auto) 2.4% (0-5) Basophils (%) (Auto) 0.5% (0-3) Sodium Level 140mEq/L (134-144) Potassium Level 3.9mEq/L (3.5-5.2) Chloride Level 102mEq/L (97-108) Carbon Dioxide Level 23mmol/L (18-29) Blood Urea Nitrogen 21mg/dL (6-24) Creatinine 0.85mg/dL (0.76-1.27) Estimat Glomerular Filtration Rate 99mL/min (>59) Glucose Level 152mg/dL (60-99) Calcium Level 9.1mg/dL (8.5-10.1) Magnesium Level 2.0mg/dL (1.6-2.6) Total Bilirubin 0.4mg/dL (0.0-1.2) Aspartate Amino Transf (AST/SGOT) 18U/L (0-50) Alanine Aminotransferase (ALT/SGPT) 23U/L (0-44) Alkaline Phosphatase 122U/L (25-150) Total Protein 6.0g/dL (6.4-8.4) Albumin 4.3g/dL (3.4-5.0) Troponin T 0.010ug/L (0.0-0.011) Discharge Medications Discharge Medications Amlodipine (Amlodipine) 5 Mg Tablet 5 MG PO DAILY (Reported) Aspirin Chew (Aspirin Chew) 81 Mg Chew 81 MG PO DAILY Prescribed by: LAWRENCE FERNANDEZ MD Atorvastatin (Lipitor) 80 Mg Tablet 80 MG PO DAILY Prescribed by: CHOLO SEXTON MD Clopidogrel (Clopidogrel) 75 Mg Tablet 75 MG PO DAILY Prescribed by: JO-ANN OCHOA DO Hydrochlorothiazide (Hydrochlorothiazide) 25 Mg Tablet 25 MG PO DAILY (Reported ) Lisinopril (Lisinopril) 40 Mg Tablet 40 MG PO BID Prescribed by: KEVIN MAHMOOD DO Metoprolol Succinate ER (Metoprolol Succinate ER) 25 Mg Tab.er.24h 25 MG PO DAILY Prescribed by: KEVIN MAHMOOD DO As needed ([Meclizine Hcl]) 25 MG TABLET 25 MG PO TID PRN PRN For Dizziness Prescribed by: LAWRENCE FERNANDEZ MD Cyclobenzaprine (Cyclobenzaprine) 10 Mg Tablet 10 MG PO BID PRN PRN For Spasm Prescribed by: KEVIN MAHMOOD DO Nitroglycerin SL (Nitrostat) 0.4 Mg Tab.subl 0.4 MG SL Q5MIN PRN PRN For Chest Pain (Reported) Followup Plan Disposition: home with outpatient physical therapy Follow-up plan please follow up with PCP in 5 days on 05/20 Discharge Diet: Low fat, Low Sodium, Heart Healthy Discharge Activity: Limited until seen by PCP Patient Instructions You were hospitalized due to vertigo. MRI is negative for acute stroke. You have high grade stenosis in multiple intracranial arteries. Case discussed with Dr Ramin Mora neurologist airport operations specialist . Vertigo likely peripheral due to possibly vestibulitis. physical therapy recommends outpatient vestibular rehab.Please follow up with that . Please continue Aspirin ,plavix and atorvastatin as prescribed. Please follow up with Dr Hdz on 05/20 as scheduled. I spoke with Dr Hdz and discussed case regarding your follow up .Please take meclizine as needed for vertigo. Follow-up Provider: Iggy Hdz MD Follow-up with PCP in: 1 week copies to: Iggy Hdz MD, Melaku MD May 14, 2016 13:29 Discharge Diet: Low fat, Low Sodium, Heart Healthy Discharge Activity: Limited until seen by PCP Patient Instructions You were hospitalized due to vertigo. MRI is negative for acute stroke. You have high grade stenosis in multiple intracranial arteries. Case discussed with Dr Faustin [facility] neurologist airport operations specialist . Vertigo likely peripheral due to possibly vestibulitis. physical therapy recommends outpatient vestibular rehab.Please follow up with that . Please continue Aspirin ,plavix and atorvastatin as prescribed. Please follow up with Dr Hdz on 05/20 as scheduled. I spoke with Dr Hdz and discussed case regarding your follow up .Please take meclizine as needed for vertigo. Follow-up Provider: Iggy Hdz MD Follow-up with PCP in: 1 week Lawrence Fernandez MD May 14, 2016 13:29
--- NOTE | 2016-05-14 14:15 | NUR ---
Discharge Pt discharged at 1335. He was given instructions for follow up care and was instructed to follow up with his primary care doctor in 5 days at a scheduled appointment. Also given information regarding prescription medication that he would be leaving with. He was given 2 new prescriptions to take with him. He confirmed understanding of these instructions. He had no questions. He was taken by wheelchair by unit staff to the exit, he would be picked up by his son and driven home.
== END 2016-05-14 13:30 | disposition home health service (06) ==
LOC: SED 17:06 → EDUNIT# 17:06 → EDBD 17:06 → MOC 19:45
PROVIDERS: ADMIT Internal Medicine; ATTEND Internal Medicine
DX: R42 Dizziness and giddiness (principal); R07.89 Other chest pain; I25.10 Atherosclerotic heart disease of native coronary artery without angina pectoris; I25.2 Old myocardial infarction; I10 Essential (primary) hypertension; E78.5 Hyperlipidemia, unspecified; Z98.61 Coronary angioplasty status; Z79.82 Long term (current) use of aspirin; Z79.899 Other long term (current) drug therapy
CPT/HCPCS: 36415; 70450; 70544; 70553; 71010; 72040; 80053; 82075; 83735; 83880; 84100; 84484; 85025; 93005; 96374; 96375; 97162; 99285; A9585; C8929; G0378; J0780; J1200; J1644; J2270; J2405